=== PATIENT | male | born 1935 | race Caucasian/White ===

== ENCOUNTER 2020-06-09 06:35 | Outpatient (REF) | payer MEDICARE, SELFPAY ==
[2020-06-09 06:57] LABS: MANUAL DIFF FLAG SCAN; PLT CLUMP 1; Red Cell Distribution Width 22.1 % (11.0-16.0); SCAN SMEAR FLAG 1
[2020-06-09 06:58] LABS: Basophils Percent Auto 0.3 % (0-2); Eosinophils Absolute Auto 0.3 X10*3/uL (0.0-0.4); Eosinophils Percent Auto 3.4 % (0-4); Hematocrit 27.6 % (42-52); Hemoglobin 9.7 g/dl (14.0-18.0); Imm Gran Abs Auto 0.05 X10*3/uL (0.00-0.03); Imm Gran Pct Auto 0.7 % (0.0-0.4); Lymphocytes Absolute Auto 1.8 X10*3/uL (1.2-4.9); Lymphocytes Percent Auto 24.7 % (20-40); Mean Corpuscular HGB Conc 35.1 g/dl (31.0-36.0); Mean Corpuscular Hemoglobin 35.8 pg (27.0-33.0); Mean Corpuscular Volume 101.8 fL (80-98); Mean Platelet Volume 11.1 fL (9.4-12.4); Monocytes Absolute Auto 0.9 X10*3/uL (0.1-1.2); Monocytes Percent Auto 12.1 % (2-11); Neutrophils Absolute Auto 4.3 X10*3/uL (2.0-8.3); Neutrophils Percent Auto 58.8 % (45-73); Red Blood Count 2.71 X10*6/uL (4.60-5.80); White Blood Count 7.3 X10*3/uL (4.8-10.8)
[2020-06-09 07:20] LABS: Platelet Count 59 X10*3/uL (160-400)
[2020-06-09 07:21] LABS: SLIDE REVIEW VERIFIED
[2020-06-09 07:27] LABS: Alanine Aminotransferase 25 U/L (0-40); Albumin Level 1.7 g/dL (3.5-5.0); Alkaline Phosphatase 237 U/L (39-117); Anion Gap 14 (12-20); Aspartate Amino Transferase 69 U/L (5-37); Bilirubin Total 2.6 mg/dL (0.0-1.0); Blood Urea Nitrogen 39 mg/dL (9-16); Calcium 7.2 mg/dL (8.4-10.2); Carbon Dioxide 21 mmol/L (22-29); Chloride 104 mmol/L (96-108); Estimated Glomerular Filt Rate > 60; Glucose Random 78 mg/dL (60-115); Potassium 3.9 mmol/L (3.3-5.1); Sodium 135 mmol/L (135-145); Total Protein 5.1 g/dL (6.5-8.0)
== END 2020-06-09 06:36 | disposition home or self-care (01) ==
LOC: HO.MMNH1L 06:35
PROVIDERS: Visit Provider Family Medicine
DX: R53.1 Weakness (principal)
CPT/HCPCS: 36415; 80053; 85025

== ENCOUNTER 2020-06-12 00:10 | Outpatient (REF) | payer MEDICARE, SELFPAY ==
[2020-06-12 07:37] LABS: Hemoglobin 9.8 g/dl (14.0-18.0); PLT CLUMP 1
[2020-06-12 07:39] LABS: Hematocrit 28.8 % (42-52); Mean Corpuscular Hemoglobin 36.6 pg (27.0-33.0); Mean Corpuscular Volume 107.5 fL (80-98); Mean Platelet Volume 12.2 fL (9.4-12.4); Red Blood Count 2.68 X10*6/uL (4.60-5.80); Red Cell Distribution Width 22.6 % (11.0-16.0); White Blood Count 9.1 X10*3/uL (4.8-10.8)
[2020-06-12 07:50] LABS: Platelet Count 67 X10*3/uL (160-400)
[2020-06-12 08:20] LABS: Anion Gap 11 (12-20); Blood Urea Nitrogen 31 mg/dL (9-16); Calcium 7.5 mg/dL (8.4-10.2); Carbon Dioxide 24 mmol/L (22-29); Chloride 104 mmol/L (96-108); Estimated Glomerular Filt Rate > 60; Glucose Random 78 mg/dL (60-115); Potassium 4.7 mmol/L (3.3-5.1); Sodium 134 mmol/L (135-145)
== END 2020-06-12 00:11 | disposition home or self-care (01) ==
LOC: HO.MMNH1L 00:10
PROVIDERS: Visit Provider Family Medicine
DX: R53.1 Weakness (principal)
CPT/HCPCS: 36415; 80048; 85027

== ENCOUNTER 2020-06-15 14:22 | Emergency (ER) | payer MEDICARE, SELFPAY ==
--- NOTE | ~2020-06-15 | CT_ITS ---
EXAMINATION: CT HEAD WITHOUT CONTRAST (STROKE PROTOCOL) CLINICAL INFORMATION: Stroke protocol. Weakness. COMPARISON: None TECHNIQUE: Contiguous axial imaging was performed from the skull base to vertex without intravenous administration of contrast. This CT examination was performed using dose optimization techniques as appropriate, variously including the following: *Automated exposure control *Adjustment of mA and/or kV according to patient size (this includes techniques or standardized protocols for targeted exams where dose is matched to indication/reason for exam; i.e. extremities or head) *Use of iterative reconstruction technique DLP: 1283 mGy-cm FINDINGS: There is no acute intra-axial, extra-axial bleed, masses or midline shift there is dystrophic calcification bibasilar ganglia. 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 There are bilateral ICA aneurysm clips producing beam hardening artifact. There is bilateral temporal lobe craniotomies for aneurysm clipping. Otherwise the calvarium is unremarkable. Both lateral ventricles are enlarged and so are the cortical sulci. The visualized sinuses and middle ears and mastoid air cells show no significant mucosal thickening. There are no air-fluid levels. CT/CT head for stroke IMPRESSION: No acute intracranial process seen. 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 This critical result was discussed with Dr. Julio C Martines at 2:49 hours on 06/15/2020. It was ascertained that the content and urgency of the report was understood at the time of direct communication.
--- NOTE | 2020-06-15 14:28 | ECG_ITS ---
Test Reason : STROKE? Blood Pressure : / mmHG Vent. Rate : 099 BPM Atrial Rate : 220 BPM P-R Int : 000 ms QRS Dur : 080 ms QT Int : 344 ms P-R-T Axes : 000 -37 092 degrees QTc Int : 441 ms Atrial fibrillation with Premature ventricular complexes Left axis deviation Low voltage QRS Nonspecific T wave abnormality Abnormal ECG No previous ECGs available Referred By: Vladimir Martines Electronically Signed By:REAL JACKSON MD
[2020-06-15 14:45] LABS: Prothrombin Time Whole Bld POC 24.4 sec (11.1-13.5)
[2020-06-15 14:47] LABS: Glucose, Whole Blood 117 mg/dL (60-115)
--- NOTE | 2020-06-15 15:01 | MHC.STROKE ---
1418 EMS PRE-NOTIFICATION FROM [facility] STROKE ALERT DECREASED VISION ONSET 1330.ARRIVED 1422 EXAMINED BY MD, STROKE PROTOCOL ACTIVATED. 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 SEE RADIOLOGY READING. POC INR 2.0. RECENT RIGHT HIP SURGERY AT [facility] S/[facility]. WENT TO [facility] ON 06/08/20. I CALLED THE SNF [phone], AND SPOKE WITH THE NURSE, HE WAS NOT ON ANY BLOOD THINNERS OR ANTICOAGULATION. SHE DID NOT HAVE MUCH OF HIS HISTORY. [facility] CALLED FOR RECORDS H&P AND D/C SUMMARY. DISCUSSED CASE WITH DR US AND PATIENT IS EXCLUDED FROM TPA (ALTEPLASE) DUE TO RECENT SURGERY WITHIN 15 DAYS AND ELEVATED INR. WE WILL DO A LAB DRAW TO VERIFY INR. HIS ONLY COMPLAINT IS THAT HE COULDN'T SEE THE NUMBERS ON THE CARDS. AOX3, MAGDALENO, HE DOES HAVE EDEMA TO JELENA ARMS. SEE NURSES NOTES. I WILL FOLLOW NEEDED.
[2020-06-15 15:05] LABS: MANUAL DIFF FLAG NO
[2020-06-15 15:07] LABS: Basophils Percent Auto 0.3 % (0-2); Eosinophils Percent Auto 0.3 % (0-4); Hematocrit 27.9 % (42-52); Hemoglobin 9.5 g/dl (14.0-18.0); Imm Gran Abs Auto 0.08 X10*3/uL (0.00-0.03); Imm Gran Pct Auto 0.5 % (0.0-0.4); Lymphocytes Absolute Auto 1.6 X10*3/uL (1.2-4.9); Mean Corpuscular HGB Conc 34.1 g/dl (31.0-36.0); Mean Corpuscular Hemoglobin 37.4 pg (27.0-33.0); Mean Corpuscular Volume 109.8 fL (80-98); Mean Platelet Volume 11.1 fL (9.4-12.4); Monocytes Absolute Auto 1.2 X10*3/uL (0.1-1.2); Monocytes Percent Auto 7.6 % (2-11); Neutrophils Absolute Auto 12.9 X10*3/uL (2.0-8.3); Neutrophils Percent Auto 81.3 % (45-73); Red Blood Count 2.54 X10*6/uL (4.60-5.80); Red Cell Distribution Width 21.9 % (11.0-16.0); White Blood Count 15.9 X10*3/uL (4.8-10.8)
[2020-06-15 15:08] LABS: Platelet Count 77 X10*3/uL (160-400)
[2020-06-15 15:13] LABS: INTERNATIONAL NORM RATIO 1.7 (0.9-1.1); Prothrombin Time 20.4 SEC (10.8-13.0)
[2020-06-15 15:16] LABS: Partial Thromboplastin Time 37.5 SEC (24.1-38.0)
[2020-06-15 15:18] VITALS: BP 134/73; PULSE 82; RESP 22; TEMP 37.6; O2SAT 99; BMI 26.6
[2020-06-15 15:29] LABS: Stroke Lab Use COMPLETE
[2020-06-15 15:36] LABS: Anion Gap 13 (12-20); Blood Urea Nitrogen 24 mg/dL (9-16); Calcium 7.2 mg/dL (8.4-10.2); Carbon Dioxide 21 mmol/L (22-29); Chloride 105 mmol/L (96-108); Creatinine Clr Calc Pharmacy 58.7; Estimated Glomerular Filt Rate > 60; Glucose Random 114 mg/dL (60-115); Potassium 4.6 mmol/L (3.3-5.1); Sodium 134 mmol/L (135-145); Troponin-I High Sensitivity 21.4 ng/L (<3.5-35.0)
--- NOTE | 2020-06-15 16:48 | ED.GENADULT ---
HPI - General Adult General Chief complaint: Altered Mental Status Stated complaint: STROKE ALERT ,DECREASED VISION,LKWT @ 1:30PM Time Seen by Provider: 06/15/20 14:28 Source: patient and EMS Mode of arrival: EMS Limitations: no limitations History of Present Illness HPI narrative: 85-year-old male brought to the emergency department by ambulance for evaluation of vision change. The information came from EMS and from the patient. Patient states that he has noticed blurred vision which has been intermittent, it is unclear when the symptoms started with a may have started 1-2 hours prior to being transported to the emergency department. According to the paramedics, the patient had similar vision changes in the past when he had aneurysms. The patient was brought to the emergency department as a stroke alert. The patient currently states that his vision is blurred in both eyes but is able to see through the blurriness. He denied headache, nausea or vomiting. He denied weakness or numbness. He denied chest pain, shortness of breath, abdominal pain, changes vomited changes urine. Related Data Allergies Allergy/AdvReac Type Severity Reaction Status Date / Time No Known Allergies Allergy Verified 06/15/20 14:28 Review of Systems Review of Systems: Yes all other systems are reviewed and are negative PMFSH Past Medical History Medical History (Updated 06/15/20 @ 17:41 by Vladimir Martines MD) Acute kidney failure Fracture Hypokalemia Hypokalemia Social History Social History Advance Directives: No Advance Directives Information Provided: No Physical Exam Vital Signs: Vital Signs: Last Vital Signs Temp 99.1 F 06/15/20 17:11 Pulse 92 06/15/20 17:11 Resp 16 06/15/20 17:11 BP 124/77 06/15/20 17:11 Pulse Ox 97 06/15/20 17:11 Body Mass Index 26.6 Const: General: cooperative Orientation/consciousness: oriented to person and oriented to place Limitations: no limitations HENMT: Head: Yes normal to inspection, Yes normocephalic and Yes atraumatic Ears: external ears normal General nose exam: Normal external nose present Face and sinus: Yes normal facial exam Mouth: Normal oral and palatal mucosa present Throat: Yes posterior oropharynx normal Eyes: Other: The patient is able to see fingers that are put up in front of him, I can identify objects, he does not appear to have any peripheral deficits on my examination. Periorbital: periorbital findings normal Eyelids: Yes eyelids normal Conjunctivae: conjunctivae normal Sclerae: sclerae normal Corneas: corneas normal Pupils: Equal, round and reactive pupils present Direct Ophthalmoscopy: normal light reflex Neck: Neck: Yes full ROM, Yes no lymphadenopathy, Yes no meningeal signs, Yes trachea midline and Yes supple Chest: Chest palpation & inspection: normal inspection of the chest and normal palpation of entire chest wall Resp: Effort & Inspection: normal respiratory effort and able to speak in complete sentences Auscultation: clear to auscultation bilaterally Cardio: Rate: regular rate Rhythm: regular rhythm Heart sounds: S1 normal heart sound present, S2 normal heart sound present and no murmurs GI: Inspection: Yes normal to inspection Palpation (GI): Soft to palpation, nontender, no guarding, not rigid and No hepatosplenomegaly present : General: Yes no CVA tenderness Back/Spine/Pelvis: Back: no CVA tenderness Cervical Spine: normal cervical lordosis Thoracic/Lumbar Spine: thoracic and lumbar spine normal to inspection Skin: Lesions: no lesions Rashes: no rashes Wounds: no wounds Neuro: General: oriented to person, oriented to place and no meningeal signs Cranial nerves: Yes CN's II-XII intact bilaterally and Yes Equal, round and reactive pupils present Cognition (Neuro): normal cognition Motor exam (neuro): 5/5 motor strength present throughout Extrem: General: Yes normal to inspection and Yes full ROM Psych: Mental Status: mental status grossly normal Speech and movement: Normal speech and movement present Affect: normal affect Attitude: cooperative NIH Stroke Scale Internal: Initial- Upon Arrival Level of Consciousness: Alert Level of Consciousness Questions: Answers both questions correctly Level of Consciousness Commands: Performs both tasks correctly Best Gaze: Normal Visual: No visual loss Facial Palsy: Normal Motor Arm (Right): No drift Motor Arm (Left): No drift Motor Leg (Right): No drift Motor Leg (Left): No drift Limb Ataxia: Absent Sensory: Normal Best Language: No aphasia Dysarthia: Normal Extinction and Inattention: No abnormality Score: 0 Course Course Course Narrative: 85-year-old male sent to emergency department from his care facility for evaluation of change in vision. 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 The patient's physical examination revealed a nonfocal neurologic exam. NIH stroke scale was 0. The patient was able to identify objects without any difficulty. I did order a stroke workup on the patient. CT scan of the brain revealed no acute bleed or acute stroke but the patient does have significant abnormalities consistent with his previous surgery for subarachnoid hemorrhage and aneurysm repairs. [place] [address], of 9.5 and 27.9 which appears to be chronic. His BUN is elevated at 24 but this appears to be chronic. Patient's troponin was detectable but not elevated at 21.4. His urinalysis was negative. The patient's INR was elevated at 2.0 and his PTT was normal. The patient is not a tPA candidate based on the fact that he has an elevated INR and had a recent hip surgery. Also, at this time I do not believe the patient has had a stroke as the cause of his change in vision. On re-evaluation, the patient states his vision is normal. The patient's does have an elevated white blood cell count but I do not have any evidence for an infectious process at this time therefore he will be discharged back to his care facility for further management treatment. Medical Decision Making Lab Data Result diagrams: 06/15/20 15:01 06/15/20 15:01 Labs: Lab Results 06/15/20 06/15/20 06/15/20 Range/Units 14:33 14:42 15:01 WBC 15.9 H (4.8-10.8) X10*3/uL RBC 2.54 L (4.60-5.80) X10*6/uL Hgb 9.5 L (14.0-18.0) g/dl Hct 27.9 L (42-52) % MCV 109.8 H (80-98) fL MCH 37.4 H (27.0-33.0) pg MCHC 34.1 (31.0-36.0) g/dl RDW 21.9 H (11.0-16.0) % Plt Count 77 L (160-400) X10*3/uL MPV 11.1 (9.4-12.4) fL Immature Gran % (Auto) 0.5 H (0.0-0.4) % Neut % (Auto) 81.3 H (45-73) % Lymph % (Auto) 10.0 L (20-40) % [place] % (Auto) 7.6 (2-11) % Eos % (Auto) 0.3 (0-4) % Baso % (Auto) 0.3 (0-2) % Lymph # (Auto) 1.6 (1.2-4.9) X10*3/uL [place] # (Auto) 1.2 (0.1-1.2) X10*3/uL Eos # (Auto) 0.0 (0.0-0.4) X10*3/uL Baso # (Auto) 0.0 (0.0-0.2) X10*3/uL Abs Immat Gran (auto) 0.08 H (0.00-0.03) X10*3/uL Absolute Neuts (auto) 12.9 H (2.0-8.3) X10*3/uL Absolute Nucleated RBC 0.000 (0.0-0.012) X10*3/uL Nucleated RBC % (auto) 0.0 (0.0-0.2) /100WBC PT (10.8-13.0) SEC Whole Blood PT 24.4 H (11.1-13.5) sec INR (0.9-1.1) Whole Blood INR 2.0 H (0.9-1.1) APTT (24.1-38.0) SEC Sodium (135-145) mmol/L Potassium (3.3-5.1) mmol/L Chloride (96-108) mmol/L Carbon Dioxide (22-29) mmol/L Anion Gap (12-20) BUN (9-16) mg/dL Creatinine (0.5-1.4) mg/dL Estim Creat Clear Calc Estimated GFR POC Glucose 117 H (60-115) mg/dL Random Glucose (60-115) mg/dL Calcium (8.4-10.2) mg/dL Total Creatine Kinase (38-174) U/L Troponin I High Sens (<3.5-35.0) ng/L Urine Color Urine Appearance Urine pH (5.0-8.0) Ur Specific [place] (1.005-1.025) Urine Protein (NEG-TRACE) MG/DL Urine Glucose (UA) (NEG) MG/DL Urine Ketones (NEG) MG/DL Urine Blood (NEG) Urine Nitrite (NEG) Ur Leukocyte Esterase (NEG) 06/15/20 06/15/20 06/15/20 Range/Units 15:01 15:01 15:01 WBC (4.8-10.8) X10*3/uL RBC (4.60-5.80) X10*6/uL Hgb (14.0-18.0) g/dl Hct (42-52) % MCV (80-98) fL MCH (27.0-33.0) pg MCHC (31.0-36.0) g/dl RDW (11.0-16.0) % Plt Count (160-400) X10*3/uL MPV (9.4-12.4) fL Immature Gran % (Auto) (0.0-0.4) % Neut % (Auto) (45-73) % Lymph % (Auto) (20-40) % [place] % (Auto) (2-11) % Eos % (Auto) (0-4) % Baso % (Auto) (0-2) % Lymph # (Auto) (1.2-4.9) X10*3/uL [place] # (Auto) (0.1-1.2) X10*3/uL Eos # (Auto) (0.0-0.4) X10*3/uL Baso # (Auto) (0.0-0.2) X10*3/uL Abs Immat Gran (auto) (0.00-0.03) X10*3/uL Absolute Neuts (auto) (2.0-8.3) X10*3/uL Absolute Nucleated RBC (0.0-0.012) X10*3/uL Nucleated RBC % (auto) (0.0-0.2) /100WBC PT 20.4 H (10.8-13.0) SEC Whole Blood PT (11.1-13.5) sec INR 1.7 H (0.9-1.1) Whole Blood INR (0.9-1.1) APTT 37.5 (24.1-38.0) SEC Sodium 134 L (135-145) mmol/L Potassium 4.6 (3.3-5.1) mmol/L Chloride 105 (96-108) mmol/L Carbon Dioxide 21 L (22-29) mmol/L Anion Gap 13 (12-20) BUN 24 H (9-16) mg/dL Creatinine 0.86 (0.5-1.4) mg/dL Estim Creat Clear Calc 58.7 Estimated GFR > 60 POC Glucose (60-115) mg/dL Random Glucose 114 D (60-115) mg/dL Calcium 7.2 L (8.4-10.2) mg/dL Total Creatine Kinase 46 (38-174) U/L Troponin I High Sens 21.4 (<3.5-35.0) ng/L Urine Color Urine Appearance Urine pH (5.0-8.0) Ur Specific [place] (1.005-1.025) Urine Protein (NEG-TRACE) MG/DL Urine Glucose (UA) (NEG) MG/DL Urine Ketones (NEG) MG/DL Urine Blood (NEG) Urine Nitrite (NEG) Ur Leukocyte Esterase (NEG) 06/15/20 Range/Units 17:13 WBC (4.8-10.8) X10*3/uL RBC (4.60-5.80) X10*6/uL Hgb (14.0-18.0) g/dl Hct (42-52) % MCV (80-98) fL MCH (27.0-33.0) pg MCHC (31.0-36.0) g/dl RDW (11.0-16.0) % Plt Count (160-400) X10*3/uL MPV (9.4-12.4) fL Immature Gran % (Auto) (0.0-0.4) % Neut % (Auto) (45-73) % Lymph % (Auto) (20-40) % [place] % (Auto) (2-11) % Eos % (Auto) (0-4) % Baso % (Auto) (0-2) % Lymph # (Auto) (1.2-4.9) X10*3/uL [place] # (Auto) (0.1-1.2) X10*3/uL Eos # (Auto) (0.0-0.4) X10*3/uL Baso # (Auto) (0.0-0.2) X10*3/uL Abs Immat Gran (auto) (0.00-0.03) X10*3/uL Absolute Neuts (auto) (2.0-8.3) X10*3/uL Absolute Nucleated RBC (0.0-0.012) X10*3/uL Nucleated RBC % (auto) (0.0-0.2) /100WBC PT (10.8-13.0) SEC Whole Blood PT (11.1-13.5) sec INR (0.9-1.1) Whole Blood INR (0.9-1.1) APTT (24.1-38.0) SEC Sodium (135-145) mmol/L Potassium (3.3-5.1) mmol/L Chloride (96-108) mmol/L Carbon Dioxide (22-29) mmol/L Anion Gap (12-20) BUN (9-16) mg/dL Creatinine (0.5-1.4) mg/dL Estim Creat Clear Calc Estimated GFR POC Glucose (60-115) mg/dL Random Glucose (60-115) mg/dL Calcium (8.4-10.2) mg/dL Total Creatine Kinase (38-174) U/L Troponin I High Sens (<3.5-35.0) ng/L Urine Color [place] Urine Appearance CLEAR Urine pH 5.0 (5.0-8.0) Ur Specific [place] 1.025 (1.005-1.025) Urine Protein NEG (NEG-TRACE) MG/DL Urine Glucose (UA) NEG (NEG) MG/DL Urine Ketones NEG (NEG) MG/DL Urine Blood NEG (NEG) Urine Nitrite NEG (NEG) Ur Leukocyte Esterase NEG (NEG) ECG Data Attestation: I personally reviewed and interpreted this ECG as follows: Interpretation: 1510: Normal sinus rhythm with a rate of 99, normal intervals, occasional PVC, Q-wave in lead 3 and AVF, no ST segment elevation or depression, diffuse T-wave flattening, no old EKG for comparison. Discharge Plan Discharge Clinical Impression: Alteration in vision Leukocytosis Qualifiers: Leukocytosis type: unspecified Qualified Code(s): D72.829 - Elevated white blood cell count, unspecified Patient Disposition: Home, Self-Care Additional Instructions: Your workup included a CT scan of the brain which did not reveal any acute findings to explain your change in vision. Your blood work did reveal an elevated white blood cell count but there is no evidence for infection at this time. You are anemic but this appears to be chronic. Your urinalysis was normal with no evidence for urinary tract infection. At this time, I do not have a clear cause for change in vision but I think it is okay to send you back to your care facility. Follow-up with your doctor in 2 days. Please return to the emergency department if your symptoms get worse or if you develop any symptoms that are concerning to you.
[2020-06-15 17:11] VITALS: BP 124/77; PULSE 92; RESP 16; TEMP 37.3; O2SAT 97
[2020-06-15 17:24] LABS: Glucose Urine UA NEG (NEG); Leukocyte Esterase Urine NEG (NEG); Nitrite Urine NEG (NEG); Specific Gravity - Urine 1.025 (1.005-1.025); Urine Blood NEG (NEG); Urine Ketones NEG (NEG); Urine Protein NEG (NEG-TRACE)
[2020-06-15 17:31] LABS: Appearance Urine CLEAR; Color Urine AMBER
[2020-06-15 18:09] VITALS: BP 118/73; PULSE 96; RESP 22; TEMP 36.6; O2SAT 97
--- NOTE | 2020-06-15 19:54 | PC.NURSE ---
Pt being transferred to facility by ems
== END 2020-06-15 19:55 | disposition home or self-care (01) ==
PROVIDERS: Emergency Provider Emergency Medicine Emergency Medical Services; PCP Internal Medicine
DX: D72.829 Elevated white blood cell count, unspecified (principal); H53.8 Other visual disturbances; Z79.899 Other long term (current) drug therapy
CPT/HCPCS: 36415; 70450; 80048; 81003; 82550; 82947; 84484; 85025; 85610; 85730; 93005; 99284

== ENCOUNTER 2020-06-18 11:45 | Inpatient (IN) | payer MEDICARE, SELFPAY ==
[2020-06-18] VITALS (10 sets, daily range): BP systolic 79–147; BP diastolic 47–84; PULSE 70–100; RESP 16–20; TEMP 35.7–38.3; O2SAT 94–98; BMI 25.8; BMI 25.2
--- NOTE | ~2020-06-18 | XR_ITS ---
EXAMINATION: XR CHEST CLINICAL INFORMATION: Central line. COMPARISON: Prior radiograph at 6:37 PM. TECHNIQUE: 2 different frontal views of the chest were obtained. One was performed at 7:23 PM and another at 7:31 PM. FINDINGS: Again seen is cardiomegaly. A right chest wall pacemaker with a single lead in the right ventricle. There is an abandoned lead extending through the left subclavian vein with its tip in the right ventricle as well. The left jugular catheter has its tip which extends downward and slightly leftward at the level of the 3rd left rib. I suspect that this is most likely in the internal mammary vein and not the subclavian vein. Given the fact that there is an abandoned left subclavian pacer lead, I suspect that the left subclavian is possibly occluded/scarred accounting for the abnormal course. Marked degenerative changes present in both shoulders. There is mild cardiac enlargement. The lungs are hypoinflated. Bilateral airspace disease is again seen. No pneumothorax. XR/XR chest 1V IMPRESSION: The left IJ catheter probably extends into the internal mammary. This critical result was discussed with Dr. Kennedy at 8:20 PM on the evening of the exam and it was ascertained that the content and urgency of the report was understood at the time of direct communication.
--- NOTE | ~2020-06-18 | XR_ITS ---
EXAMINATION: XR CHEST CLINICAL INFORMATION: Low O2. COMPARISON: None TECHNIQUE: Frontal view of the chest was obtained. FINDINGS: The lungs are hypoexpanded with patchy opacities seen in the right midlung and left midlung suspicious for infiltrate. There are left hemidiaphragm likely from underlying atelectasis. The heart size and pulmonary vascularity is normal. There is pacer electrode in the right ventricle. A second left pacer electrode without hardware is noted. There are surgical duane in left axilla from previous intervention. XR/XR chest 1V IMPRESSION: Hypoexpanded lungs with patchy opacities in bilateral mid lung region suspicious for developing infiltrates aerated
--- NOTE | ~2020-06-18 | CT_ITS ---
EXAMINATION: CT CHEST, ABDOMEN AND PELVIS WITHOUT CONTRAST CLINICAL INFORMATION: Pleural effusion, pneumonia. Sacral decubitus ulcers. COMPARISON: None. TECHNIQUE: Contiguous axial thin section helical images of the chest, abdomen and pelvis were performed without contrast. The data set was reformatted in the coronal and sagittal planes and reviewed on an independent workstation. This CT examination was performed using dose optimization techniques as appropriate, variously including the following: *Automated exposure control *Adjustment of mA and/or kV according to patient size (this includes techniques or standardized protocols for targeted exams where dose is matched to indication/reason for exam; i.e. extremities or head) *Use of iterative reconstruction technique Dose Length Product: 1599 mGycm. FINDINGS: LUNGS: Bibasilar atelectasis and patchy consolidation, also involving the right upper lobe posteriorly, and right middle lobe at the confluence of the fissures. There is peripheral reticulation in the subpleural left upper lobe and lingula which may represent areas of fibrosis. MEDIASTINUM: No pericardial effusion. No adenopathy. The aortic root is mildly aneurysmal measuring 4.8 cm. The left IJ catheter courses along the lateral aspect of the aortic arch, presumably within the left superior intercostal vein. PLEURA: Moderate left and small right pleural effusions. Associated left basilar atelectasis. AXILLA: Edema and postsurgical changes in the left axilla with multiple surgical clips. LIVER, GALLBLADDER, BILIARY TREE: The liver appears shrunken with a nodular contour compatible with cirrhosis. No obvious liver lesion. The gallbladder appears to be distended with sludge. PANCREAS: The pancreas is partially fatty atrophied. SPLEEN: The spleen is not enlarged. ADRENAL GLANDS, KIDNEYS, URETERS, AND BLADDER: No hydronephrosis. Nephrograms are symmetric. No suspicious lesions. The urinary bladder is drained by Schrader catheter. BOWEL LOOPS: No focal inflammatory process or obstruction. LYMPH NODES/RETROPERITONEUM: Moderate ascites. Diffuse anasarca. OSSEOUS STRUCTURES: Postsurgical changes related to a recent right hip arthroplasty with lateral skin duane and fluid deep to the iliotibial band. Skin thickening and subcutaneous edema superficial to the sacrum without evidence of underlying osteomyelitis. ADDITIONAL FINDINGS: Moderate to severe multilevel degenerative disc disease. There is destruction of the endplates at T11-T12, with loss of 50% vertebral body height of the T12 vertebral body. The appearance suggests chronic discitis/osteomyelitis. CT/CT abdomen pelvis wo con IMPRESSION: Cirrhosis and ascites. Anasarca. Moderate left and small right pleural effusions. Bibasilar atelectasis and areas of mild consolidation and groundglass attenuation. Cannot exclude multifocal pneumonia. The left IJ catheter courses into the left superior intercostal vein and should be repositioned. Destruction of the T11-T12 endplates with vertebral body height loss and irregularity suggests discitis/osteomyelitis. Although this appears chronic, cannot exclude active infection. No priors for comparison. Correlate clinically. Possible cellulitis superficial to the sacrum without evidence of underlying osteomyelitis. Postsurgical changes of the right hip with fluid collection deep to the iliotibial band. 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 .
--- NOTE | ~2020-06-18 | XR_ITS ---
EXAMINATION: XR CHEST CLINICAL INFORMATION: Central line COMPARISON: Chest radiograph 06/18/2020 TECHNIQUE: Frontal view of the chest was obtained. FINDINGS: Right-sided pacemaker device with lead projecting over the right ventricle. Abandoned left-sided lead is again demonstrated. Interval placement of left internal jugular line with catheter tip coiled at the junction between the internal jugular vein and left subclavian vein. Stable cardiomediastinal silhouette. Increased hazy opacity at the left lung base. Small left pleural effusion. The right lung is clear. No acute osseous abnormality. Surgical clips in the left axilla. XR/XR chest 1V IMPRESSION: Left internal jugular central venous line tip at the junction between internal jugular vein and left subclavian vein, with tip coiled laterally. Increased hazy opacity at the left lung base, that may represent atelectasis or infiltrate. Small left pleural effusion. Findings were discussed with Dr. Kennedy at 7:06 PM on 06/18/2020.
--- NOTE | 2020-06-18 12:15 | PC.NURSE ---
PT HAS A LARGE OPEN ULCER ON HIS COCXY AREA, NO VISIBLE TUNLING AT THIS TIME. PT ALSO HAS LARGE PATCHES OF BRUISING NOTICED HIS BACK/FLANK AREA.
--- NOTE | 2020-06-18 12:35 | ECG_ITS ---
Test Reason : WEAKNESS Blood Pressure : / mmHG Vent. Rate : 106 BPM Atrial Rate : 107 BPM P-R Int : 000 ms QRS Dur : 084 ms QT Int : 292 ms P-R-T Axes : 000 -38 109 degrees QTc Int : 387 ms Atrial fibrillation with rapid ventricular response with premature ventricular or aberrantly conducted complexes Left axis deviation Low voltage QRS Abnormal QRS-T angle, consider primary T wave abnormality Abnormal ECG When compared with ECG of 15-JUN-2020 15:10, Premature ventricular complexes are no longer Present Nonspecific T wave abnormality, improved in Lateral leads QT has shortened Referred By: Mildred Pak Electronically Signed By:REAL JACKSON MD
--- NOTE | 2020-06-18 12:39 | ED_ITS ---
HPI - General Adult General Chief complaint: Dyspnea Stated complaint: SOB W LOW O2SAT IN 70'S Time Seen by Provider: 06/18/20 12:13 Source: patient Mode of arrival: ambulatory Limitations: no limitations History of Present Illness HPI narrative: Patient comes emergency room via EMS. Staff at [facility] called EMS because the patient's oxygen saturation was at 70% on room air. According to EMS, the patient was in no respiratory distress, patient's hands were very cold and they were unable to get any oxygen saturation. Patient did not look cyanotic, patient denies shortness of breath or chest pain. Patient's only complaint was pain in the sacrum. Related Data Home Medications Medication Instructions Recorded Confirmed albuterol sulfate 2 puff INHALATION TID PRN 06/18/20 06/18/20 coenzyme Q10 [Co Q-10] 300 mg PO BEDTIME 06/18/20 06/18/20 metoprolol succinate 12.5 mg PO DAILY 06/18/20 06/18/20 Allergies Allergy/AdvReac Type Severity Reaction Status Date / Time No Known Allergies Allergy Verified 06/15/20 14:28 Review of Systems Review of Systems: Constitutional : No Weight loss, No Fever, No Chills, No Night Sweats, No Fatigue, No Malaise ENT/Mouth : No Hearing loss, No Ear Pain, No Nasal Congestion, No Sinus Pain, No Hoarseness, No sore throat, No Rhinorrhea, No Swallowing Difficulty Eyes: No Eye Pain, No Swelling, No Redness, No Foreign Body, No Discharge, No Vision Changes Cardiovascular : No Chest Pain, No SOB, No Dyspnea on Exertion, No Orthopnea, No Edema, No Palpitations Respiratory : No Cough, No Sputum, No Wheezing, No Smoke Exposure, No Dyspnea Gastrointestinal : No Nausea, No Vomiting, No Diarrhea, No Constipation, No abdominal Pain, No Hematochezia, No Melena Genitourinary : no irregular bleeding, No Dysuria, No Urinary Frequency, No Hematuria, No Urinary Incontinence, No Urgency, No Flank Pain, No Urinary Flow Changes, No Hesitancy Musculoskeletal : No joint pain, No Myalgias, No Joint Swelling Skin : Complaining of pain in the sacrum from a pressure ulcer Neuro : No Weakness, No Numbness, No Paresthesias, No Loss of Consciousness, No Dizziness, No Headache Psych : No Anxiety/Panic, No Depression, No SI/HI/AH/VH, No Social Issues, Heme/Lymph: No Bruising, No Bleeding,No Lymphadenopathy Endocrine : No Polyuria, No Polydipsia, No Temperature Intolerance [facility] Past Medical History Medical History Acute kidney failure Fracture HTN (hypertension) Hypokalemia Hypokalemia Social History Social History Smoking Status: Former smoker Use of substances other than those prescribed or required for medical reasons: No Advance Directives: No Advance Directives Information Provided: No Physical Exam Vital Signs: Vital Signs: Last Vital Signs Temp 101.0 F H 06/18/20 12:12 Pulse 98 06/18/20 16:43 Resp 18 06/18/20 16:43 BP 98/53 L 06/18/20 16:43 Pulse Ox 96 06/18/20 16:43 Body Mass Index 25.2 Appearance: Alert. Oriented X3. No acute distress. Eyes: Pupils equal, round and reactive to light. ENT: Pharynx normal. Neck: Normal inspection. Neck supple. No lymph nodes noted. No crepitus CVS: Normal heart rate and rhythm. Pulses normal. Normal S1 and S2 Respiratory: No respiratory distress. On nasal cannula Abdomen: Soft and nontender. No rigidity. Skin: Skin warm and dry. Patient has a healing surgical site on the hip on the right side, patient has stage III pressure ulcer in the sacrum Extremities: +1 bilaterall extremity edema Neuro: Cranial nerves 2-12 grossly intact Course Course Course Narrative: at this time, 14:30 labs are still pending, patient is a difficult stick. The nurses tried multiple times to start an IV, patient is a difficult stick, even with ultrasound. I was asked per the nurse to start an IV, patient has now a right IJ. 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 Patient states that he is tired of coming to hospitals, being poked, and all the discomfort that comes with a hospital visit. Patient asked to talk to me, Patient states that he does not want any further treatment, patient states that he will like to only be made comfortable. Patient asked me if I could call a multimedia services manager so that he could sign papers and he wants to request physician assisted suicide. I discussed with the patient that this is not an option. Later, patient's came in the room patient is insistent that he does no want any further treatment. At this time, patient is full code. After a prolonged discussion, we agreed that patient can change his code status to DNR DNI 1st, and then the patient and his can consider a ONLINE MERCHANDISING SPECIALIST option. Patient and agree with this plan. It was explained to the patient that DNR DNI does not mean do not treat, we will still go ahead and give him fluids, antibiotics, pain medication as needed. At this time 15:45 patient agrees with plan and agrees to continue with the treatment treated. I discussed with the patient that there is a possibility that he may have sepsis, likely secondary to pneumonia, patient agreed to allow us to start treatment 14:37 I had another long discussion with the patient's , she does not know if she wants to consent for a central line. I discussed with the patient and his , that he needs a central line and pressors since his blood pressure is dropping. The patient states that he will do whatever his says. The was thoroughly educated, and at this time, she has split feelings between allowing us to do a central line, giving him pressors versus making him ONLINE MERCHANDISING SPECIALIST. Patient and his will have a conversation at this time, and the side shortly. 17:14: At this time, patient's blood pressure improving with fluids. The patient and his decided that since the blood pressure is improving, they will hold off on the central line, but if the blood pressure drops again, they will accept the central line. Patient is now DNR DNI, MOLST form has been signed by the patient's who is the patient's healthcare proxy. Given that the patient is DNR DNI, patient has acute CHF exacerbation, we will be very cautious with fluids, he may not get the full 30 mL/kilogram Patient discussed with Dr. Bowles, patient being admitted. Sign-out given to Dr. Kennedy as well, as patient may need a central line if the blood pressure drops while boarding in the ED Medical Decision Making Lab Data Result diagrams: 06/18/20 14:37 06/18/20 14:38 Labs: Lab Results 06/18/20 06/18/20 06/18/20 Range/Units 14:13 14:37 14:38 WBC 15.9 H (4.8-10.8) X10*3/uL RBC 2.57 L (4.60-5.80) X10*6/uL Hgb 9.5 L (14.0-18.0) g/dl Hct 28.8 L (42-52) % MCV 112.1 H (80-98) fL MCH 37.0 H (27.0-33.0) pg MCHC 33.0 (31.0-36.0) g/dl RDW 21.0 H (11.0-16.0) % Plt Count 87 L (160-400) X10*3/uL MPV 11.0 (9.4-12.4) fL Immature Gran % (Auto) 0.9 H (0.0-0.4) % Neut % (Auto) 84.5 H (45-73) % Lymph % (Auto) 5.8 L (20-40) % [place] % (Auto) 8.4 (2-11) % Eos % (Auto) 0.0 (0-4) % Baso % (Auto) 0.4 (0-2) % Lymph # (Auto) 0.9 L (1.2-4.9) X10*3/uL [place] # (Auto) 1.3 H (0.1-1.2) X10*3/uL Eos # (Auto) 0.0 (0.0-0.4) X10*3/uL Baso # (Auto) 0.1 (0.0-0.2) X10*3/uL Abs Immat Gran (auto) 0.15 H (0.00-0.03) X10*3/uL Absolute Neuts (auto) 13.4 H (2.0-8.3) X10*3/uL Absolute Nucleated RBC 0.000 (0.0-0.012) X10*3/uL Nucleated RBC % (auto) 0.0 (0.0-0.2) /100WBC ESR (0-15) MM/HR PT 23.6 H (10.8-13.0) SEC INR 2.0 H (0.9-1.1) Sodium 132 L (135-145) mmol/L Potassium 4.6 (3.3-5.1) mmol/L Chloride 102 (96-108) mmol/L Carbon Dioxide 19 L (22-29) mmol/L Anion Gap 16 (12-20) BUN 25 H (9-16) mg/dL Creatinine 1.03 (0.5-1.4) mg/dL Estim Creat Clear Calc 49.0 Estimated GFR > 60 Random Glucose 85 (60-115) mg/dL Lactic Acid (0.5-2.0) mmol/L Calcium 7.1 L (8.4-10.2) mg/dL Total Bilirubin 4.3 H (0.0-1.0) mg/dL Direct Bilirubin 2.3 H (0.0-0.5) mg/dL AST 47 H (5-37) U/L ALT 22 (0-40) U/L Alkaline Phosphatase 195 H (39-117) U/L C-Reactive Protein 8.51 H (< or = 0.50) mg/dL B-Natriuretic Peptide (<100) pg/mL Total Protein 5.8 L (6.5-8.0) g/dL Albumin 1.9 L (3.5-5.0) g/dL Urine Color Urine Appearance Urine pH (5.0-8.0) Ur Specific [place] (1.005-1.025) Urine Protein (NEG-TRACE) MG/DL Urine Glucose (UA) (NEG) MG/DL Urine Ketones (NEG) MG/DL Urine Blood (NEG) Urine Nitrite (NEG) Ur Leukocyte Esterase (NEG) Urine Opiates Screen (Not Detect) Ur Barbiturates Screen (Not Detect) Ur Phencyclidine Scrn (Not Detect) Ur Amphetamines Screen (Not Detect) U Benzodiazepines Scrn (Not Detect) Urine Cocaine Screen (Not Detect) U Marijuana (THC) Screen (Not Detect) Coronavirus (PCR) (Negative) Influenza Type A (PCR) (Negative) Influenza Type B (PCR) (Negative) RSV RNA Qual (PCR) (Negative) 06/18/20 06/18/20 06/18/20 Range/Units 15:00 15:01 15:01 WBC (4.8-10.8) X10*3/uL RBC (4.60-5.80) X10*6/uL Hgb (14.0-18.0) g/dl Hct (42-52) % MCV (80-98) fL MCH (27.0-33.0) pg MCHC (31.0-36.0) g/dl RDW (11.0-16.0) % Plt Count (160-400) X10*3/uL MPV (9.4-12.4) fL Immature Gran % (Auto) (0.0-0.4) % Neut % (Auto) (45-73) % Lymph % (Auto) (20-40) % [place] % (Auto) (2-11) % Eos % (Auto) (0-4) % Baso % (Auto) (0-2) % Lymph # (Auto) (1.2-4.9) X10*3/uL [place] # (Auto) (0.1-1.2) X10*3/uL Eos # (Auto) (0.0-0.4) X10*3/uL Baso # (Auto) (0.0-0.2) X10*3/uL Abs Immat Gran (auto) (0.00-0.03) X10*3/uL Absolute Neuts (auto) (2.0-8.3) X10*3/uL Absolute Nucleated RBC (0.0-0.012) X10*3/uL Nucleated RBC % (auto) (0.0-0.2) /100WBC ESR 25 H (0-15) MM/HR PT (10.8-13.0) SEC INR (0.9-1.1) Sodium (135-145) mmol/L Potassium (3.3-5.1) mmol/L Chloride (96-108) mmol/L Carbon Dioxide (22-29) mmol/L Anion Gap (12-20) BUN (9-16) mg/dL Creatinine (0.5-1.4) mg/dL Estim Creat Clear Calc Estimated GFR Random Glucose (60-115) mg/dL Lactic Acid 4.0 H* (0.5-2.0) mmol/L Calcium (8.4-10.2) mg/dL Total Bilirubin (0.0-1.0) mg/dL Direct Bilirubin (0.0-0.5) mg/dL AST (5-37) U/L ALT (0-40) U/L Alkaline Phosphatase (39-117) U/L C-Reactive Protein (< or = 0.50) mg/dL B-Natriuretic Peptide 485 H (<100) pg/mL Total Protein (6.5-8.0) g/dL Albumin (3.5-5.0) g/dL Urine Color Urine Appearance Urine pH (5.0-8.0) Ur Specific [place] (1.005-1.025) Urine Protein (NEG-TRACE) MG/DL Urine Glucose (UA) (NEG) MG/DL Urine Ketones (NEG) MG/DL Urine Blood (NEG) Urine Nitrite (NEG) Ur Leukocyte Esterase (NEG) Urine Opiates Screen (Not Detect) Ur Barbiturates Screen (Not Detect) Ur Phencyclidine Scrn (Not Detect) Ur Amphetamines Screen (Not Detect) U Benzodiazepines Scrn (Not Detect) Urine Cocaine Screen (Not Detect) U Marijuana (THC) Screen (Not Detect) Coronavirus (PCR) (Negative) Influenza Type A (PCR) (Negative) Influenza Type B (PCR) (Negative) RSV RNA Qual (PCR) (Negative) 06/18/20 06/18/20 06/18/20 Range/Units 16:35 16:35 16:35 WBC (4.8-10.8) X10*3/uL RBC (4.60-5.80) X10*6/uL Hgb (14.0-18.0) g/dl Hct (42-52) % MCV (80-98) fL MCH (27.0-33.0) pg MCHC (31.0-36.0) g/dl RDW (11.0-16.0) % Plt Count (160-400) X10*3/uL MPV (9.4-12.4) fL Immature Gran % (Auto) (0.0-0.4) % Neut % (Auto) (45-73) % Lymph % (Auto) (20-40) % [place] % (Auto) (2-11) % Eos % (Auto) (0-4) % Baso % (Auto) (0-2) % Lymph # (Auto) (1.2-4.9) X10*3/uL [place] # (Auto) (0.1-1.2) X10*3/uL Eos # (Auto) (0.0-0.4) X10*3/uL Baso # (Auto) (0.0-0.2) X10*3/uL Abs Immat Gran (auto) (0.00-0.03) X10*3/uL Absolute Neuts (auto) (2.0-8.3) X10*3/uL Absolute Nucleated RBC (0.0-0.012) X10*3/uL Nucleated RBC % (auto) (0.0-0.2) /100WBC ESR (0-15) MM/HR PT (10.8-13.0) SEC INR (0.9-1.1) Sodium (135-145) mmol/L Potassium (3.3-5.1) mmol/L Chloride (96-108) mmol/L Carbon Dioxide (22-29) mmol/L Anion Gap (12-20) BUN (9-16) mg/dL Creatinine (0.5-1.4) mg/dL Estim Creat Clear Calc Estimated GFR Random Glucose (60-115) mg/dL Lactic Acid (0.5-2.0) mmol/L Calcium (8.4-10.2) mg/dL Total Bilirubin (0.0-1.0) mg/dL Direct Bilirubin (0.0-0.5) mg/dL AST (5-37) U/L ALT (0-40) U/L Alkaline Phosphatase (39-117) U/L C-Reactive Protein (< or = 0.50) mg/dL B-Natriuretic Peptide (<100) pg/mL Total Protein (6.5-8.0) g/dL Albumin (3.5-5.0) g/dL Urine Color DARK YELLOW Urine Appearance CLEAR Urine pH 5.5 (5.0-8.0) Ur Specific [place] 1.025 (1.005-1.025) Urine Protein NEG (NEG-TRACE) MG/DL Urine Glucose (UA) NEG (NEG) MG/DL Urine Ketones NEG (NEG) MG/DL Urine Blood NEG (NEG) Urine Nitrite NEG (NEG) Ur Leukocyte Esterase NEG (NEG) Urine Opiates Screen Not Detected (Not Detect) Ur Barbiturates Screen Not Detected (Not Detect) Ur Phencyclidine Scrn Not Detected (Not Detect) Ur Amphetamines Screen Not Detected (Not Detect) U Benzodiazepines Scrn Not Detected (Not Detect) Urine Cocaine Screen Not Detected (Not Detect) U Marijuana (THC) Screen Not Detected (Not Detect) Coronavirus (PCR) NEGATIVE (Negative) Influenza Type A (PCR) NEGATIVE (Negative) Influenza Type B (PCR) NEGATIVE (Negative) RSV RNA Qual (PCR) NEGATIVE (Negative) Imaging Data Chest x-ray: Radiologist's impression: The lungs are hypoexpanded with patchy opacities seen in the right midlung and left midlung suspicious for infiltrate. There are left hemidiaphragm likely from underlying atelectasis. The heart size and pulmonary vascularity is normal. There is pacer electrode in the right ventricle. A second left pacer electrode without hardware is noted. There are surgical duane in left axilla from previous intervention. XR/XR chest 1V IMPRESSION: Hypoexpanded lungs with patchy opacities in bilateral mid lung region suspicious for developing infiltrates aerated ECG Data Attestation: I personally reviewed and interpreted this ECG as follows: (Atrial fibrillation, heart rate 106, QTC 387, no ST segment depression or elevation, nonspecific T-wave abnormality in lead III) Discharge Plan Discharge Clinical Impression: Pneumonia Qualifiers: Pneumonia type: due to unspecified organism Laterality: unspecified laterality Lung location: unspecified part of lung Qualified Code(s): J18.9 - Pneumonia, unspecified organism Patient Disposition: Admitted As Inpatient
--- NOTE | 2020-06-18 14:20 | PC.NURSE ---
assisting dr navarro with and iv access, dr smith was able to get and ej on the right side of the pt's neck, pt tolerated the procedure well.
[2020-06-18 14:29] LABS: Prothrombin Time 23.6 SEC (10.8-13.0)
[2020-06-18] MEDS: Acetaminophen 325 MG TABLET 650 MG PO (14:44)
[2020-06-18 14:46] LABS: MANUAL DIFF FLAG NO
[2020-06-18] MEDS: Lidocaine HCl 2 % MPF 5 ML VIAL INFILTRATI (14:46)
[2020-06-18 14:49] LABS: Basophils Absolute Auto 0.1 X10*3/uL (0.0-0.2); Basophils Percent Auto 0.4 % (0-2); Hematocrit 28.8 % (42-52); Hemoglobin 9.5 g/dl (14.0-18.0); Imm Gran Abs Auto 0.15 X10*3/uL (0.00-0.03); Imm Gran Pct Auto 0.9 % (0.0-0.4); Lymphocytes Absolute Auto 0.9 X10*3/uL (1.2-4.9); Lymphocytes Percent Auto 5.8 % (20-40); Mean Corpuscular Volume 112.1 fL (80-98); Monocytes Absolute Auto 1.3 X10*3/uL (0.1-1.2); Monocytes Percent Auto 8.4 % (2-11); Neutrophils Absolute Auto 13.4 X10*3/uL (2.0-8.3); Neutrophils Percent Auto 84.5 % (45-73); Platelet Count 87 X10*3/uL (160-400); Red Blood Count 2.57 X10*6/uL (4.60-5.80); White Blood Count 15.9 X10*3/uL (4.8-10.8)
[2020-06-18 15:18] LABS: Alanine Aminotransferase 22 U/L (0-40); Albumin Level 1.9 g/dL (3.5-5.0); Alkaline Phosphatase 195 U/L (39-117); Anion Gap 16 (12-20); Aspartate Amino Transferase 47 U/L (5-37); Bilirubin Direct 2.3 mg/dL (0.0-0.5); Bilirubin Total 4.3 mg/dL (0.0-1.0); Blood Urea Nitrogen 25 mg/dL (9-16); C Reactive Protein 8.51 mg/dL (< or = 0.50); Calcium 7.1 mg/dL (8.4-10.2); Carbon Dioxide 19 mmol/L (22-29); Chloride 102 mmol/L (96-108); Estimated Glomerular Filt Rate > 60; Glucose Random 85 mg/dL (60-115); Potassium 4.6 mmol/L (3.3-5.1); Sodium 132 mmol/L (135-145); Total Protein 5.8 g/dL (6.5-8.0)
[2020-06-18 15:53] LABS: B Type Natriuretic Peptide 485 pg/mL (<100)
[2020-06-18 15:55] LABS: Erythrocyte Sedimentation Rate 25 MM/HR (0-15)
[2020-06-18] MEDS: 0.9 % Sodium Chloride 1,000 ML 999 ML IVCONT ×2 (16:23→19:05)
[2020-06-18] MEDS: levoFLOXacin/D5W 500 MG/100 ML PIGGYBACK 100 MG IV (16:36)
--- NOTE | 2020-06-18 16:45 | PC.NURSE ---
dr navarro at bedside talking to pt and his about the next step in pt's care, pt bp is dropping, and he is a very hard stick, discussing the possibility of central line and pressors. DNR signed at this time as well. pt;s arms are very swollen and weeping, skin tear on the left forearm, lower extremities as well very swollen with peding edema
[2020-06-18 17:01] LABS: Glucose Urine UA NEG (NEG); Leukocyte Esterase Urine NEG (NEG); Nitrite Urine NEG (NEG); PH 5.5 (5.0-8.0); Specific Gravity - Urine 1.025 (1.005-1.025); Urine Blood NEG (NEG); Urine Ketones NEG (NEG); Urine Protein NEG (NEG-TRACE)
[2020-06-18 17:02] LABS: Appearance Urine CLEAR; Color Urine DARK YELLOW
[2020-06-18 17:07] LABS: Reflex Lactate? Lactic Acid Added
[2020-06-18 17:20] LABS: Amphetamine Screen Urine Not Detected (Not Detect); Barbiturates, Urine Not Detected (Not Detect); Benzodiazepines Screen Urine Not Detected (Not Detect); Cannabinoid Screen Urine Not Detected (Not Detect); Cocaine Screen Urine Not Detected (Not Detect); Opiate Screen Urine Not Detected (Not Detect); Phencyclidine Screen Urine Not Detected (Not Detect)
[2020-06-18 17:22] LABS: Influenza A PCR NEGATIVE (Negative); Influenza B PCR NEGATIVE (Negative); Resp Syncy Virus RNA Qual PCR NEGATIVE (Negative); SARS COV2 PCR INHOUSE NEGATIVE (Negative)
--- NOTE | 2020-06-18 18:28 | PC.NURSE ---
dr mcgregor at bedside to insert a central line, 16 welsh on the left jugular
--- NOTE | 2020-06-18 18:35 | ED_ITS ---
HPI - SOB/Dyspnea General Chief Complaint: Dyspnea Stated Complaint: SOB W LOW O2SAT IN 70'S Time Seen by Provider: 06/18/20 12:13 Source: patient Mode of arrival: ambulatory Limitations: no limitations Related Data Home Medications Medication Instructions Recorded Confirmed albuterol sulfate 2 puff INHALATION TID PRN 06/18/20 06/18/20 coenzyme Q10 [Co Q-10] 300 mg PO DAILY 06/18/20 06/18/20 metoprolol succinate 0.5 tab PO DAILY 06/18/20 06/18/20 oxycodone 5 mg PO Q4-6H 06/18/20 06/18/20 potassium chloride 1 tab PO DAILY 06/18/20 06/18/20 Allergies Allergy/AdvReac Type Severity Reaction Status Date / Time No Known Allergies Allergy Verified 06/15/20 14:28 [facility] Past Medical History Medical History (Updated 06/18/20 @ 22:22 by Victor Manuel Kennedy MD) Acute kidney failure Acute renal injury due to sepsis Ascending aorta dilatation Atrial fibrillation Carotid artery dissection Carotid artery stenosis Cerebral arterial aneurysm Chronic diastolic heart failure Fracture of right hip Hearing loss Hepatic failure HTN (hypertension) Hyperlipidemia Hypokalemia [place]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 Pacemaker 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) Septic shock Sick sinus syndrome Surgical History (Updated 06/18/20 @ 22:18 by Victor Manuel Kennedy MD) History of surgery for cerebral aneurysm Status post right shoulder hemiarthroplasty Social History Social History Smoking Status: Former smoker Use of substances other than those prescribed or required for medical reasons: No Advance Directives: No Advance Directives Information Provided: No Physical Exam Vital Signs: Vital Signs: Last Vital Signs Temp 96.4 F L 06/18/20 22:26 Pulse 86 06/18/20 22:26 Resp 16 06/18/20 22:26 BP 103/65 06/18/20 22:26 Pulse Ox 96 06/18/20 22:26 Body Mass Index 25.2 Procedures Central Line Placement Left IJ: Time Out Performed: Yes Patient Placed on Monitor/Pulse Ox: Yes Prep: mask, gown and gloves Central Line Prep: Chlorhexidine scrub Local Anesthetic: lidocaine 1% Amount of anesthesia used (mL): 3 Ultrasound Used for Placement: Yes Central Line Lumen Inserted: triple Post Procedure: sutured in place, good blood return, all ports aspirated, flushed, capped and sterile dressing applied Post Procedure X-Ray: no pneumothorax seen and other (Tip of the catheter curved in subclavian vein and IJ junction) Patient Tolerated Procedure: well Complications: none MDM - SOB/Dyspnea MDM Narrative Medical decision making narrative: Patient seen and re-evaluated discharge summary from [facility] was reviewed, came here for hypoxia workup showed bilateral pneumonia with septic shock requiring vasopressors also has a sacral chronic ulcer. Patient is DNR DNI on IV antibiotics vancomycin and Levaquin will admit to ICU. Position of left IJ catheter were discussed with log brander at this time has a good blood draw and IV fluids are running good does not want to change the catheter Lab Data Attestation: I reviewed the patient's lab results. Result diagrams: 06/18/20 14:37 06/18/20 14:38 Labs: Lab Results 06/18/20 06/18/20 06/18/20 Range/Units 14:13 14:37 14:38 WBC 15.9 H (4.8-10.8) X10*3/uL RBC 2.57 L (4.60-5.80) X10*6/uL Hgb 9.5 L (14.0-18.0) g/dl Hct 28.8 L (42-52) % MCV 112.1 H (80-98) fL MCH 37.0 H (27.0-33.0) pg MCHC 33.0 (31.0-36.0) g/dl RDW 21.0 H (11.0-16.0) % Plt Count 87 L (160-400) X10*3/uL MPV 11.0 (9.4-12.4) fL Immature Gran % (Auto) 0.9 H (0.0-0.4) % Neut % (Auto) 84.5 H (45-73) % Lymph % (Auto) 5.8 L (20-40) % [place] % (Auto) 8.4 (2-11) % Eos % (Auto) 0.0 (0-4) % Baso % (Auto) 0.4 (0-2) % Lymph # (Auto) 0.9 L (1.2-4.9) X10*3/uL [place] # (Auto) 1.3 H (0.1-1.2) X10*3/uL Eos # (Auto) 0.0 (0.0-0.4) X10*3/uL Baso # (Auto) 0.1 (0.0-0.2) X10*3/uL Abs Immat Gran (auto) 0.15 H (0.00-0.03) X10*3/uL Absolute Neuts (auto) 13.4 H (2.0-8.3) X10*3/uL Absolute Nucleated RBC 0.000 (0.0-0.012) X10*3/uL Nucleated RBC % (auto) 0.0 (0.0-0.2) /100WBC ESR (0-15) MM/HR PT 23.6 H (10.8-13.0) SEC INR 2.0 H (0.9-1.1) Sodium 132 L (135-145) mmol/L Potassium 4.6 (3.3-5.1) mmol/L Chloride 102 (96-108) mmol/L Carbon Dioxide 19 L (22-29) mmol/L Anion Gap 16 (12-20) BUN 25 H (9-16) mg/dL Creatinine 1.03 (0.5-1.4) mg/dL Estim Creat Clear Calc 49.0 Estimated GFR > 60 Random Glucose 85 (60-115) mg/dL Lactic Acid (0.5-2.0) mmol/L Lactic Acid Fup @ 2Hr (0.5-2.0) mmol/L Calcium 7.1 L (8.4-10.2) mg/dL Total Bilirubin 4.3 H (0.0-1.0) mg/dL Direct Bilirubin 2.3 H (0.0-0.5) mg/dL AST 47 H (5-37) U/L ALT 22 (0-40) U/L Alkaline Phosphatase 195 H (39-117) U/L C-Reactive Protein 8.51 H (< or = 0.50) mg/dL B-Natriuretic Peptide (<100) pg/mL Total Protein 5.8 L (6.5-8.0) g/dL Albumin 1.9 L (3.5-5.0) g/dL Urine Color Urine Appearance Urine pH (5.0-8.0) Ur Specific [place] (1.005-1.025) Urine Protein (NEG-TRACE) MG/DL Urine Glucose (UA) (NEG) MG/DL Urine Ketones (NEG) MG/DL Urine Blood (NEG) Urine Nitrite (NEG) Ur Leukocyte Esterase (NEG) Urine Opiates Screen (Not Detect) Ur Barbiturates Screen (Not Detect) Ur Phencyclidine Scrn (Not Detect) Ur Amphetamines Screen (Not Detect) U Benzodiazepines Scrn (Not Detect) Urine Cocaine Screen (Not Detect) U Marijuana (THC) Screen (Not Detect) Coronavirus (PCR) (Negative) Influenza Type A (PCR) (Negative) Influenza Type B (PCR) (Negative) RSV RNA Qual (PCR) (Negative) 06/18/20 06/18/20 06/18/20 Range/Units 15:00 15:01 15:01 WBC (4.8-10.8) X10*3/uL RBC (4.60-5.80) X10*6/uL Hgb (14.0-18.0) g/dl Hct (42-52) % MCV (80-98) fL MCH (27.0-33.0) pg MCHC (31.0-36.0) g/dl RDW (11.0-16.0) % Plt Count (160-400) X10*3/uL MPV (9.4-12.4) fL Immature Gran % (Auto) (0.0-0.4) % Neut % (Auto) (45-73) % Lymph % (Auto) (20-40) % [place] % (Auto) (2-11) % Eos % (Auto) (0-4) % Baso % (Auto) (0-2) % Lymph # (Auto) (1.2-4.9) X10*3/uL [place] # (Auto) (0.1-1.2) X10*3/uL Eos # (Auto) (0.0-0.4) X10*3/uL Baso # (Auto) (0.0-0.2) X10*3/uL Abs Immat Gran (auto) (0.00-0.03) X10*3/uL Absolute Neuts (auto) (2.0-8.3) X10*3/uL Absolute Nucleated RBC (0.0-0.012) X10*3/uL Nucleated RBC % (auto) (0.0-0.2) /100WBC ESR 25 H (0-15) MM/HR PT (10.8-13.0) SEC INR (0.9-1.1) Sodium (135-145) mmol/L Potassium (3.3-5.1) mmol/L Chloride (96-108) mmol/L Carbon Dioxide (22-29) mmol/L Anion Gap (12-20) BUN (9-16) mg/dL Creatinine (0.5-1.4) mg/dL Estim Creat Clear Calc Estimated GFR Random Glucose (60-115) mg/dL Lactic Acid 4.0 H* (0.5-2.0) mmol/L Lactic Acid Fup @ 2Hr (0.5-2.0) mmol/L Calcium (8.4-10.2) mg/dL Total Bilirubin (0.0-1.0) mg/dL Direct Bilirubin (0.0-0.5) mg/dL AST (5-37) U/L ALT (0-40) U/L Alkaline Phosphatase (39-117) U/L C-Reactive Protein (< or = 0.50) mg/dL B-Natriuretic Peptide 485 H (<100) pg/mL Total Protein (6.5-8.0) g/dL Albumin (3.5-5.0) g/dL Urine Color Urine Appearance Urine pH (5.0-8.0) Ur Specific [place] (1.005-1.025) Urine Protein (NEG-TRACE) MG/DL Urine Glucose (UA) (NEG) MG/DL Urine Ketones (NEG) MG/DL Urine Blood (NEG) Urine Nitrite (NEG) Ur Leukocyte Esterase (NEG) Urine Opiates Screen (Not Detect) Ur Barbiturates Screen (Not Detect) Ur Phencyclidine Scrn (Not Detect) Ur Amphetamines Screen (Not Detect) U Benzodiazepines Scrn (Not Detect) Urine Cocaine Screen (Not Detect) U Marijuana (THC) Screen (Not Detect) Coronavirus (PCR) (Negative) Influenza Type A (PCR) (Negative) Influenza Type B (PCR) (Negative) RSV RNA Qual (PCR) (Negative) 06/18/20 06/18/20 06/18/20 Range/Units 16:35 16:35 16:35 WBC (4.8-10.8) X10*3/uL RBC (4.60-5.80) X10*6/uL Hgb (14.0-18.0) g/dl Hct (42-52) % MCV (80-98) fL MCH (27.0-33.0) pg MCHC (31.0-36.0) g/dl RDW (11.0-16.0) % Plt Count (160-400) X10*3/uL MPV (9.4-12.4) fL Immature Gran % (Auto) (0.0-0.4) % Neut % (Auto) (45-73) % Lymph % (Auto) (20-40) % [place] % (Auto) (2-11) % Eos % (Auto) (0-4) % Baso % (Auto) (0-2) % Lymph # (Auto) (1.2-4.9) X10*3/uL [place] # (Auto) (0.1-1.2) X10*3/uL Eos # (Auto) (0.0-0.4) X10*3/uL Baso # (Auto) (0.0-0.2) X10*3/uL Abs Immat Gran (auto) (0.00-0.03) X10*3/uL Absolute Neuts (auto) (2.0-8.3) X10*3/uL Absolute Nucleated RBC (0.0-0.012) X10*3/uL Nucleated RBC % (auto) (0.0-0.2) /100WBC ESR (0-15) MM/HR PT (10.8-13.0) SEC INR (0.9-1.1) Sodium (135-145) mmol/L Potassium (3.3-5.1) mmol/L Chloride (96-108) mmol/L Carbon Dioxide (22-29) mmol/L Anion Gap (12-20) BUN (9-16) mg/dL Creatinine (0.5-1.4) mg/dL Estim Creat Clear Calc Estimated GFR Random Glucose (60-115) mg/dL Lactic Acid (0.5-2.0) mmol/L Lactic Acid Fup @ 2Hr (0.5-2.0) mmol/L Calcium (8.4-10.2) mg/dL Total Bilirubin (0.0-1.0) mg/dL Direct Bilirubin (0.0-0.5) mg/dL AST (5-37) U/L ALT (0-40) U/L Alkaline Phosphatase (39-117) U/L C-Reactive Protein (< or = 0.50) mg/dL B-Natriuretic Peptide (<100) pg/mL Total Protein (6.5-8.0) g/dL Albumin (3.5-5.0) g/dL Urine Color DARK YELLOW Urine Appearance CLEAR Urine pH 5.5 (5.0-8.0) Ur Specific [place] 1.025 (1.005-1.025) Urine Protein NEG (NEG-TRACE) MG/DL Urine Glucose (UA) NEG (NEG) MG/DL Urine Ketones NEG (NEG) MG/DL Urine Blood NEG (NEG) Urine Nitrite NEG (NEG) Ur Leukocyte Esterase NEG (NEG) Urine Opiates Screen Not Detected (Not Detect) Ur Barbiturates Screen Not Detected (Not Detect) Ur Phencyclidine Scrn Not Detected (Not Detect) Ur Amphetamines Screen Not Detected (Not Detect) U Benzodiazepines Scrn Not Detected (Not Detect) Urine Cocaine Screen Not Detected (Not Detect) U Marijuana (THC) Screen Not Detected (Not Detect) Coronavirus (PCR) NEGATIVE (Negative) Influenza Type A (PCR) NEGATIVE (Negative) Influenza Type B (PCR) NEGATIVE (Negative) RSV RNA Qual (PCR) NEGATIVE (Negative) 06/18/20 Range/Units 22:16 WBC (4.8-10.8) X10*3/uL RBC (4.60-5.80) X10*6/uL Hgb (14.0-18.0) g/dl Hct (42-52) % MCV (80-98) fL MCH (27.0-33.0) pg MCHC (31.0-36.0) g/dl RDW (11.0-16.0) % Plt Count (160-400) X10*3/uL MPV (9.4-12.4) fL Immature Gran % (Auto) (0.0-0.4) % Neut % (Auto) (45-73) % Lymph % (Auto) (20-40) % [place] % (Auto) (2-11) % Eos % (Auto) (0-4) % Baso % (Auto) (0-2) % Lymph # (Auto) (1.2-4.9) X10*3/uL [place] # (Auto) (0.1-1.2) X10*3/uL Eos # (Auto) (0.0-0.4) X10*3/uL Baso # (Auto) (0.0-0.2) X10*3/uL Abs Immat Gran (auto) (0.00-0.03) X10*3/uL Absolute Neuts (auto) (2.0-8.3) X10*3/uL Absolute Nucleated RBC (0.0-0.012) X10*3/uL Nucleated RBC % (auto) (0.0-0.2) /100WBC ESR (0-15) MM/HR PT (10.8-13.0) SEC INR (0.9-1.1) Sodium (135-145) mmol/L Potassium (3.3-5.1) mmol/L Chloride (96-108) mmol/L Carbon Dioxide (22-29) mmol/L Anion Gap (12-20) BUN (9-16) mg/dL Creatinine (0.5-1.4) mg/dL Estim Creat Clear Calc Estimated GFR Random Glucose (60-115) mg/dL Lactic Acid (0.5-2.0) mmol/L Lactic Acid Fup @ 2Hr 2.5 H* (0.5-2.0) mmol/L Calcium (8.4-10.2) mg/dL Total Bilirubin (0.0-1.0) mg/dL Direct Bilirubin (0.0-0.5) mg/dL AST (5-37) U/L ALT (0-40) U/L Alkaline Phosphatase (39-117) U/L C-Reactive Protein (< or = 0.50) mg/dL B-Natriuretic Peptide (<100) pg/mL Total Protein (6.5-8.0) g/dL Albumin (3.5-5.0) g/dL Urine Color Urine Appearance Urine pH (5.0-8.0) Ur Specific [place] (1.005-1.025) Urine Protein (NEG-TRACE) MG/DL Urine Glucose (UA) (NEG) MG/DL Urine Ketones (NEG) MG/DL Urine Blood (NEG) Urine Nitrite (NEG) Ur Leukocyte Esterase (NEG) Urine Opiates Screen (Not Detect) Ur Barbiturates Screen (Not Detect) Ur Phencyclidine Scrn (Not Detect) Ur Amphetamines Screen (Not Detect) U Benzodiazepines Scrn (Not Detect) Urine Cocaine Screen (Not Detect) U Marijuana (THC) Screen (Not Detect) Coronavirus (PCR) (Negative) Influenza Type A (PCR) (Negative) Influenza Type B (PCR) (Negative) RSV RNA Qual (PCR) (Negative) Critical Care Time Critical Care Time Critical Care Time: Yes Total Critical Care Time: 70 Attestation: I spent 70 minutes of critical care, with interventions, assessments, speaking to patient, consultants, and family. Discharge Plan Discharge Clinical Impression: Septic shock Pneumonia Qualifiers: Pneumonia type: due to unspecified organism Laterality: unspecified laterality Lung location: unspecified part of lung Qualified Code(s): J18.9 - Pneumonia, unspecified organism Chronic liver failure Qualifiers: Hepatic coma status: without hepatic coma Qualified Code(s): K72.10 - Chronic hepatic failure without coma Patient Disposition: Admitted As Inpatient
[2020-06-18] MEDS: Albumin Human 25 % 100 ML IV (18:37)
[2020-06-18] MEDS: vancomycin HCL 1,000 MG in 0.9 % Sodium Chloride 250 ML 270 MG IV (18:45)
[2020-06-18] MEDS: 0.9 % Sodium Chloride 500 ML 999 ML IVCONT (19:04)
--- NOTE | 2020-06-18 19:12 | PC.NURSE ---
see printed vs in the chart
--- NOTE | 2020-06-18 19:37 | PC.NURSE ---
central line repositioned by provider. patient tolerated well. xray confirmed placement.
--- NOTE | 2020-06-18 19:49 | PC.NURSE ---
core temp mustafa placed by this rn for temp monitoring and ua output.
--- NOTE | 2020-06-18 21:52 | PC.NURSE ---
pt repositioned to left side post ct. at this time, patient positioned to right side. bp decreased. increased levo to 0.07mcg/kg/min. aware.
--- NOTE | 2020-06-18 22:13 | PC.NURSE ---
LATE ENTRY: 1900-CALLED PHELB TODRAW LACTIC. 2099-CALLED PHLEB TO DRAW LACTIC 2212-PHLEB TO BEDSIDE TO DRAW LACTIC NOW.
--- NOTE | 2020-06-18 22:27 | PC.NURSE ---
movie projectionist CUT OUT MARKER at bedside. pt alert, following commands. awaits room in ICU.
--- NOTE | 2020-06-18 22:37 | P.HPCC_ITS ---
History of Present Illness Date of Service: 06/18/20 Chief Complaint: Shortness of breath This is a 85-year-old male with an extensive past medical history including diastolic heart failure ( last echo,04/14/2020 at [facility], EF 60-65%), atrial fibrillation (not on anticoagulation) sick sinus syndrome status post pacemaker ( since the 2012), hypertension, hyperlipidemia, dysphagia, liver cirrhosis, chronic thrombocytopenia, anemia, unstageable coccyx wound, who also has had multiple admissions to hospital since March including UTI septic shock, as well as right femur neck fracture with surgical repair on 06/04/2020 [facility]. He presented today to the emergency room from [facility], [facility] after all O2 saturation in the 70s on room air. On arrival to the emergency room the patient was alert and oriented x3 and vital signs were stable, but later he developed a fever to 101, and became hypotensive to the SBP to 70s. Laboratory data significant for WBC 15.9, platelets 87, sodium 134, bicarb 21, lactic acid 4, calcium 7.2, total billirubin 4.3, AST 47, Alk phos 195, total protein albumin 1.9, BNP 485. Urine: negative for UTI Imaging: Chest CT: appears to have bilateral pneumonia Abdomen/Pelvis CT: Cirrhosis and ascites. Anasarca. Possible cellulitis superficial to the sacrum without evidence of underlying osteomyelitis.Postsurgical changes of the right hip with fluid collection deep to the iliotibial band. 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 ER course: he received 3 L of non normal saline, vancomycin 1 g, levofloxacin 500, Albumin 200ml, and ultimately require Levophed for severe hypotension In the ED, code status was addressed with patient as well as . In the in the beginning patient wanted to be made SCUBA DIVER, but an agreement between patient and , patient is now a DNR/DNI. MOLST form was completed by ED physician. DNR/DNI order in chart Review of Systems Constitutional: Constitutional: Denies body ache(s), Denies chills, Reports malaise and Reports poor appetite Eyes: Eyes: Denies blurry vision ENT: Denies dizziness Cardiovascular: Cardiovascular: Denies chest pain, Denies rapid heart rate, Reports leg edema and Reports dyspnea Respiratory: Respiratory: Reports cough and Reports dyspnea Gastrointestinal: Gastrointestinal: Denies abdominal pain, Denies diarrhea, Denies nausea and Denies vomiting Musculoskeletal: Musculoskeletal: Reports joint swelling Integumentary/Breasts: Comments: Sacral wound Neurologic: Denies dizziness PMFSH Past Medical History Medical History (Updated 06/18/20 @ 23:55 by Casper Gutierrez) Acute kidney failure Acute renal injury due to sepsis Ascending aorta dilatation Atrial fibrillation Carotid artery dissection Carotid artery stenosis Cerebral arterial aneurysm Chronic diastolic heart failure Fracture of right hip Hearing loss Hepatic failure HTN (hypertension) Hyperlipidemia Hypokalemia Hoyt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 Pacemaker 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) Septic shock Sick sinus syndrome Surgical History Surgical History (Updated 06/18/20 @ 22:18 by Victor Manuel Kennedy MD) History of surgery for cerebral aneurysm Status post right shoulder hemiarthroplasty Social History Social History Smoking Status: Former smoker Use of substances other than those prescribed or required for medical reasons: No Advance Directives: No Advance Directives Information Provided: No Meds Allergies Allergy/AdvReac Type Severity Reaction Status Date / Time No Known Allergies Allergy Verified 06/15/20 14:28 Active Medications: Current Medications Generic Name Dose Route Start Last Admin Trade Name Freq PRN Reason Stop Dose Admin Heparin Sodium (Porcine) 5,000 unit 06/18/20 23:00 Heparin Sodium,Porcine 5,000 Unit/Ml Vial SUBCUT Q8H GIOVANNI Albumin Human 100 mls @ 100 mls/hr 06/18/20 18:00 06/18/20 19:59 Kedbumin 25 % IV 06/19/20 12:59 Infused Q6H GIOVANNI Infusion Norepinephrine Bitartrate 8 mg in 250 mls @ 0 mls/hr 06/18/20 18:45 06/18/20 21:49 Levophed IVCONT 0.7 mcg/kg/min .Q0M GIOVANNI 93.19 mls/hr Titration Protocol Per Protocol Home Medications Medication Instructions Recorded Confirmed Last Taken Type albuterol sulfate 2 puff INHALATION TID PRN 06/18/20 06/18/20 Unknown History coenzyme Q10 [Co Q-10] 300 mg PO DAILY 06/18/20 06/18/20 Unknown History metoprolol succinate 0.5 tab PO DAILY 06/18/20 06/18/20 Unknown History oxycodone 5 mg PO Q4-6H 06/18/20 06/18/20 Unknown History potassium chloride 1 tab PO DAILY 06/18/20 06/18/20 Unknown History Physical Exam Vital Signs: Vital Signs: Last Vital Signs Temp 96.4 F L 06/18/20 22:26 Pulse 86 06/18/20 22:26 Resp 16 06/18/20 22:26 BP 103/65 06/18/20 22:26 Pulse Ox 96 06/18/20 22:26 Body Mass Index 25.2 Focused exam at 2200 Patient alert and oriented x3, in no acute distress. temperature 96.1. Lungs with rhonchi primarily a bases. Satting 95% on 2L via NC , tachypneic to 22, S1- S2 present. No M/R/G. Normal capillary refill, pulses present in all extremities. Normal cap refill. Abdomen soft, + bowel sounds in all quadrants. Able to move all extremities to command. Pitting edema on bilateral lower extremities Results Labs CBC and Chem 7: 06/18/20 14:37 06/18/20 14:38 Labs: Laboratory Results - last 24 hr 06/18/20 06/18/20 06/18/20 14:13 14:37 14:38 MCV 112.1 H MCH 37.0 H MCHC 33.0 RDW 21.0 H Plt Count 87 L MPV 11.0 Immature Gran % (Auto) 0.9 H Neut % (Auto) 84.5 H Lymph % (Auto) 5.8 L [place] % (Auto) 8.4 Eos % (Auto) 0.0 Baso % (Auto) 0.4 Lymph # (Auto) 0.9 L [place] # (Auto) 1.3 H Eos # (Auto) 0.0 Baso # (Auto) 0.1 Abs Immat Gran (auto) 0.15 H Absolute Neuts (auto) 13.4 H Absolute Nucleated RBC 0.000 Nucleated RBC % (auto) 0.0 ESR PT 23.6 H INR 2.0 H Anion Gap 16 Estim Creat Clear Calc 49.0 Estimated GFR > 60 Random Glucose 85 Lactic Acid Calcium 7.1 L Total Bilirubin 4.3 H Direct Bilirubin 2.3 H AST 47 H ALT 22 Alkaline Phosphatase 195 H C-Reactive Protein 8.51 H B-Natriuretic Peptide Total Protein 5.8 L Albumin 1.9 L Urine Color Urine Appearance Urine pH Ur Specific [place] Urine Protein Urine Glucose (UA) Urine Ketones Urine Blood Urine Nitrite Ur Leukocyte Esterase Urine Opiates Screen Ur Barbiturates Screen Ur Phencyclidine Scrn Ur Amphetamines Screen U Benzodiazepines Scrn Urine Cocaine Screen U Marijuana (THC) Screen Coronavirus (PCR) Influenza Type A (PCR) Influenza Type B (PCR) RSV RNA Qual (PCR) 06/18/20 06/18/20 06/18/20 15:00 15:01 15:01 MCV MCH MCHC RDW Plt Count MPV Immature Gran % (Auto) Neut % (Auto) Lymph % (Auto) [place] % (Auto) Eos % (Auto) Baso % (Auto) Lymph # (Auto) [place] # (Auto) Eos # (Auto) Baso # (Auto) Abs Immat Gran (auto) Absolute Neuts (auto) Absolute Nucleated RBC Nucleated RBC % (auto) ESR 25 H PT INR Anion Gap Estim Creat Clear Calc Estimated GFR Random Glucose Lactic Acid 4.0 H* Calcium Total Bilirubin Direct Bilirubin AST ALT Alkaline Phosphatase C-Reactive Protein B-Natriuretic Peptide 485 H Total Protein Albumin Urine Color Urine Appearance Urine pH Ur Specific [place] Urine Protein Urine Glucose (UA) Urine Ketones Urine Blood Urine Nitrite Ur Leukocyte Esterase Urine Opiates Screen Ur Barbiturates Screen Ur Phencyclidine Scrn Ur Amphetamines Screen U Benzodiazepines Scrn Urine Cocaine Screen U Marijuana (THC) Screen Coronavirus (PCR) Influenza Type A (PCR) Influenza Type B (PCR) RSV RNA Qual (PCR) 06/18/20 06/18/20 06/18/20 16:35 16:35 16:35 MCV MCH MCHC RDW Plt Count MPV Immature Gran % (Auto) Neut % (Auto) Lymph % (Auto) [place] % (Auto) Eos % (Auto) Baso % (Auto) Lymph # (Auto) [place] # (Auto) Eos # (Auto) Baso # (Auto) Abs Immat Gran (auto) Absolute Neuts (auto) Absolute Nucleated RBC Nucleated RBC % (auto) ESR PT INR Anion Gap Estim Creat Clear Calc Estimated GFR Random Glucose Lactic Acid Calcium Total Bilirubin Direct Bilirubin AST ALT Alkaline Phosphatase C-Reactive Protein B-Natriuretic Peptide Total Protein Albumin Urine Color DARK YELLOW Urine Appearance CLEAR Urine pH 5.5 Ur Specific [place] 1.025 Urine Protein NEG Urine Glucose (UA) NEG Urine Ketones NEG Urine Blood NEG Urine Nitrite NEG Ur Leukocyte Esterase NEG Urine Opiates Screen Not Detected Ur Barbiturates Screen Not Detected Ur Phencyclidine Scrn Not Detected Ur Amphetamines Screen Not Detected U Benzodiazepines Scrn Not Detected Urine Cocaine Screen Not Detected U Marijuana (THC) Screen Not Detected Coronavirus (PCR) NEGATIVE Influenza Type A (PCR) NEGATIVE Influenza Type B (PCR) NEGATIVE RSV RNA Qual (PCR) NEGATIVE Imaging Radiologist's Impressions: Impressions Chest X-Ray 06/18/20 12:35 IMPRESSION: Hypoexpanded lungs with patchy opacities in bilateral mid lung region suspicious for developing infiltrates aerated Chest X-Ray 06/18/20 18:33 IMPRESSION: Left internal jugular central venous line tip at the junction between internal jugular vein and left subclavian vein, with tip coiled laterally. Increased hazy opacity at the left lung base, that may represent atelectasis or infiltrate. Small left pleural effusion. Findings were discussed with Dr. Kennedy at 7:06 PM on 06/18/2020. Abdomen/Pelvis CT 06/18/20 18:34 IMPRESSION: Cirrhosis and ascites. Anasarca. Moderate left and small right pleural effusions. Bibasilar atelectasis and areas of mild consolidation and groundglass attenuation. Cannot exclude multifocal pneumonia. The left IJ catheter courses into the left superior intercostal vein and should be repositioned. Destruction of the T11-T12 endplates with vertebral body height loss and irregularity suggests discitis/osteomyelitis. Although this appears chronic, cannot exclude active infection. No priors for comparison. Correlate clinically. Possible cellulitis superficial to the sacrum without evidence of underlying osteomyelitis. Postsurgical changes of the right hip with fluid collection deep to the iliotibial band. 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 . Chest X-Ray 06/18/20 19:32 IMPRESSION: The left IJ catheter probably extends into the internal mammary. This critical result was discussed with Dr. Kennedy at 8:20 PM on the evening of the exam and it was ascertained that the content and urgency of the report was understood at the time of direct communication. Chest X-Ray 06/18/20 19:35 IMPRESSION: The left IJ catheter probably extends into the internal mammary. This critical result was discussed with Dr. Kennedy at 8:20 PM on the evening of the exam and it was ascertained that the content and urgency of the report was understood at the time of direct communication. Chest CT 03/14/21 19:37 IMPRESSION: Cirrhosis and ascites. Anasarca. Moderate left and small right pleural effusions. Bibasilar atelectasis and areas of mild consolidation and groundglass attenuation. Cannot exclude multifocal pneumonia. The left IJ catheter courses into the left superior intercostal vein and should be repositioned. Destruction of the T11-T12 endplates with vertebral body height loss and irregularity suggests discitis/osteomyelitis. Although this appears chronic, cannot exclude active infection. No priors for comparison. Correlate clinically. Possible cellulitis superficial to the sacrum without evidence of underlying osteomyelitis. Postsurgical changes of the right hip with fluid collection deep to the iliotibial band. 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 . Assessment and Plan (1) Septic shock: Status: Acute 85-year-old male with multifocal pneumonia, requiring pressors support Neuro: no acute issues Cardiac: Septic shock, with multifocal pneumonia being the source. On Levophed. Will continue antibiotics. Wean off pressors when appropriate. Pulmonary: Acute respiratory distress with hypoxemia- Chest x-ray with Bibasilar airspace disease, white count is elevated. Negative COVID test in the ED. Required some s upplemental oxygenation. Receive Levaquin/vancomycin the ED. Will continue antibiotics Renal: no acute issues Endo: No acute issues. GI: Elevated INR, INR 2 today. According to [facility] records, the patient has chronic elevated INR Likely due to chronic liver cirrhosis. Will hold DVT prophylaxis, and use compression device instead. ID: septic shock from multifocal pneumonia. Patient received Levaquin/vancomycin. Will continue Heme/Onc: Chronic thrombocytopenia / platelets 87 today. This is normal for the patient. Psych: No acute issues. Miscellaneous: Chronic unstageable coccyx wound: Being managed at acute rehab, will consult wound care in the morning Diet: Cardiac/ Mechanical soft prophylaxis: mechanical boots. No GI prophylaxis at this time Code: DNR/DNI Critical care time: X 60 minutes of critical care time (2) Chronic liver failure: Qualifiers: Hepatic coma status: without hepatic coma Qualified Code(s): K72.10 - Chronic hepatic failure without coma Status: Acute (3) Pneumonia: Qualifiers: Laterality: unspecified laterality Lung location: unspecified part of lung Pneumonia type: due to unspecified organism Qualified Code(s): J18.9 - Pneumonia, unspecified organism Status: Acute (4) Elevated INR: Status: Acute (5) Thrombocytopenia: Status: Acute (6) Acute respiratory failure with hypoxemia: Status: Acute
[2020-06-18 22:41] LABS: ~Lactic Acid-LAB USE ONLY 2.5 mmol/L (0.5-2.0)
--- NOTE | 2020-06-18 22:57 | PC.NURSE ---
attempted to call report cele sultana to call back.
--- NOTE | 2020-06-18 23:14 | PC.NURSE ---
per intensive director inpatient headache program okay to hold heparin due to high pt inr and bleeding around central line cite
--- NOTE | 2020-06-18 23:23 | PC.NURSE ---
lab contacted for overdue cbc. phleb to draw due to difficult stick.
[2020-06-19] VITALS (17 sets, daily range): BP systolic 95–135; BP diastolic 54–84; PULSE 82–105; RESP 14–27; TEMP 35.6–36.6; O2SAT 90–96; BMI 25.2
[2020-06-19 00:18] LABS: Reflex Lactate? 2 Y
[2020-06-19 00:30] LABS: Eosinophils Percent Auto 0.2 % (0-4); PLT CLUMP 1; SCAN SMEAR FLAG 1
[2020-06-19 00:32] LABS: Basophils Absolute Auto 0.1 X10*3/uL (0.0-0.2); Basophils Percent Auto 0.5 % (0-2); Hematocrit 24.1 % (42-52); Imm Gran Abs Auto 0.12 X10*3/uL (0.00-0.03); Imm Gran Pct Auto 0.8 % (0.0-0.4); Lymphocytes Absolute Auto 1.5 X10*3/uL (1.2-4.9); Lymphocytes Percent Auto 10.7 % (20-40); Mean Corpuscular HGB Conc 33.2 g/dl (31.0-36.0); Mean Corpuscular Hemoglobin 36.9 pg (27.0-33.0); Mean Platelet Volume 11.3 fL (9.4-12.4); Monocytes Absolute Auto 1.1 X10*3/uL (0.1-1.2); Monocytes Percent Auto 7.8 % (2-11); Neutrophils Absolute Auto 11.6 X10*3/uL (2.0-8.3); Platelet Count 78 X10*3/uL (160-400); Red Blood Count 2.17 X10*6/uL (4.60-5.80); White Blood Count 14.4 X10*3/uL (4.8-10.8)
[2020-06-19 00:36] LABS: MANUAL DIFF FLAG NO; Mean Corpuscular Volume 111.1 fL (80-98)
[2020-06-19 01:03] LABS: ~Lactic Acid-LAB USE ONLY 2.6 mmol/L (0.5-2.0)
[2020-06-19] MEDS: Albumin Human 25 % 100 ML IV ×3 (01:33→14:45)
[2020-06-19 05:48] LABS: MANUAL DIFF FLAG NO
[2020-06-19 05:59] LABS: Basophils Absolute Auto 0.1 X10*3/uL (0.0-0.2); Basophils Percent Auto 0.4 % (0-2); Eosinophils Percent Auto 0.2 % (0-4); Hematocrit 25.2 % (42-52); Hemoglobin 7.9 g/dl (14.0-18.0); Imm Gran Abs Auto 0.11 X10*3/uL (0.00-0.03); Imm Gran Pct Auto 0.9 % (0.0-0.4); Lymphocytes Percent Auto 8.2 % (20-40); Mean Corpuscular HGB Conc 31.3 g/dl (31.0-36.0); Mean Corpuscular Hemoglobin 36.4 pg (27.0-33.0); Mean Corpuscular Volume 116.1 fL (80-98); Mean Platelet Volume 10.7 fL (9.4-12.4); Monocytes Percent Auto 8.2 % (2-11); Neutrophils Absolute Auto 9.8 X10*3/uL (2.0-8.3); Neutrophils Percent Auto 82.1 % (45-73); Platelet Count 62 X10*3/uL (160-400); Red Blood Count 2.17 X10*6/uL (4.60-5.80); Red Cell Distribution Width 21.1 % (11.0-16.0); White Blood Count 11.9 X10*3/uL (4.8-10.8)
[2020-06-19 06:24] LABS: Alanine Aminotransferase 19 U/L (0-40); Albumin Level 2.4 g/dL (3.5-5.0); Alkaline Phosphatase 143 U/L (39-117); Anion Gap 14 (12-20); Aspartate Amino Transferase 37 U/L (5-37); Blood Urea Nitrogen 29 mg/dL (9-16); Calcium 7.3 mg/dL (8.4-10.2); Carbon Dioxide 20 mmol/L (22-29); Chloride 105 mmol/L (96-108); Creatinine Clr Calc Pharmacy 54.9; Estimated Glomerular Filt Rate > 60; Glucose Random 67 mg/dL (60-115); Magnesium 1.6 mg/dL (1.6-2.6); Sodium 135 mmol/L (135-145); Total Protein 5.3 g/dL (6.5-8.0)
[2020-06-19 07:23] LABS: Adenovirus PCR Not Detected (Not Detect.); Bordetella parapertussis PCR Not Detected (Not Detect.); Bordetella pertussis PCR Not Detected (Not Detect.); Chlamydia pneumoniae PCR Not Detected (Not Detect.); Coronavirus 229E PCR Not Detected (Not Detect.); Coronavirus HKU1 PCR Not Detected (Not Detect.); Coronavirus NL63 PCR Not Detected (Not Detect.); Coronavirus OC43 PCR Not Detected (Not Detect.); Human metapneumovirus PCR Not Detected (Not Detect.); Influenza A PCR Not Detected (Not Detect.); Influenza B PCR Not Detected (Not Detect.); Mycoplasma pneumoniae PCR Not Detected (Not Detect.); Parainfluenza 1 PCR Not Detected (Not Detect.); Parainfluenza 2 PCR Not Detected (Not Detect.); Parainfluenza 3 PCR Not Detected (Not Detect.); Parainfluenza 4 PCR Not Detected (Not Detect.); RSV PCR Not Detected (Not Detect.); Rhino/Enterovirus PCR Not Detected (Not Detect.); SARS-CoV-2 PCR Not Detected (Not Detect.)
[2020-06-19 07:58] LABS: Phosphorus 3.6 mg/dL (2.7-4.5)
--- NOTE | 2020-06-19 10:58 | MHC.CLN ---
RE: CONSULT RECOMMEND ADDING ENSURE TID, EMMA AND PROSOURCE TO PROMOTE WOUND HEALING MONITOR NH3 LEVELS CLOSELY SEE ALSO CLINICAL NUTRITION ASSESSMENT
--- NOTE | 2020-06-19 12:45 | P.PNCC_ITS ---
Subjective Subjective Date of Service: 06/19/20 Interval History: Mr. Delgado was admitted to the ICU late last night with presumed pneumonia and septic shock. The patient is an 85-year-old man with past medical history of: Cirrhosis w prev episiode of hepatic failure Chronic thrombocytopenia 2? above Atrial fibrillation, not on anticoagulation. 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 On arrival to the emergency room the patient was alert and oriented x3 and vital signs were stable w Sat 94- 96% on 2L NC, but later he developed a fever to 101, and became hypotensive to the SBP to 70s. Laboratory data significant for WBC 15.9, platelets 87, sodium 134, bicarb 21, BUN/creat 25/1.0, lactic acid 4, calcium 7.2, total billirubin 4.3, AST 47, Alk phos 195, albumin 1.9, BNP 485. U/A was negative. Chest CT showed bibasilar patchy consolidation that could be c/w pneumonia. Abdomen/Pelvis CT showed Cirrhosis, ascites, and anasarca. Possible cellulitis superficial to the sacrum without evidence of underlying osteomyelitis. Postsurgical changes of the right hip with fluid collection deep to the iliotibial band. 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 ER course: He received 3 L of normal saline, vancomycin 1 g, levofloxacin 500, Albumin 200ml, and ultimately required Levophed for hypotension, so he was admitted to ICU In the ED, code status was addressed with patient as well as . 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 MOLST form was completed by ED physic jin. Overnight he did well. This morning he?s off Levophed and off oxygen, breathing easy, with Sat 93-100% on room air. See vital signs below. For the hour or so that I observed him today, he didn?t cough once. He?s fully responsive but not fully appropriate at all times, seems slightly confused. Definitely icteric. No JVD at 30 degrees. Chest is clear to auscultation, with normal expiratory phase. + anasarca. LABORATORY DATA: As below. Notably, WBC is down. IMPRESSION: 1. Baseline cirrhosis (unkn etiology) w acites, thrombocytopenia, coagulopathy, and hypoalbuminemia. I?m assuming that his current bili level is prob his baseline. 2. ? pneumonia. Hard to say that someone who?s breathing easy, who?s not coughing, and has a Sat up to 100% on room air has pneumonia. Nevertheless, last night he did have a fever, and his CT does show infiltrates (at least in the LLL). It?s possible, maybe even more likely, that he aspirated yesterday resulting in relatively transient hypoxemia, fever, and hypotension, and the aspiration pneumonitis has pretty much resolved by today. Notwithstanding, it?s reasonable to give him a course of Abx. I?ve changed him to oral abx -- Augmentin -- and would suggest a five day course. 3. Septic shock. If he had septic shock, it?s now resolved. (In a patient with cirrhosis, the lactate level can?t be used as the main diagnostic criteria for sepsis or shock.) 4. ID. Note that this a patient with ascites, who had a fever and a WBC. An argument could be made for tapping his belly to make sure that he doesn?t have SBP. But since he?s clearly better now, a more conservative route, as outlined above, is prudent. 5. Renal: Current renal indices are very possibly his baseline 6. Coagulopathy. 2? cirrhosis. Have no proof that he?s noncorrectable. Therefore I?ve written him for a five dose course of Vit K (total 50mg). DVT prophylaxis with compression boots. 7. Chronic thrombocytopenia. 2? cirrhosis. 8. Hypoalbuminemia. 2? cirrhosis. 9. Skin/Soft tis: Chronic coccyx wound. Seen by wound care this morning. They assessed it as stage II, and suggested routine barrier care. Code status: DNR/DNI Stable for transfer to regular room. I will sign out to the hospitalists. Time: 82284 Physical Exam Vital Signs: Vital Signs: Last Vital Signs Temp 97.2 F 06/19/20 12:00 Pulse 102 H 06/19/20 12:00 Resp 25 H 06/19/20 12:00 BP 116/67 06/19/20 12:00 Pulse Ox 94 06/19/20 11:00 Body Mass Index 25.2 Objective Data Labs CBC & Chem 7: 06/19/20 05:13 06/19/20 05:13 Labs: Laboratory Results - last 24 hr 06/18/20 06/18/20 06/18/20 14:13 14:37 14:38 WBC 15.9 H RBC 2.57 L Hgb 9.5 L Hct 28.8 L MCV 112.1 H MCH 37.0 H MCHC 33.0 RDW 21.0 H Plt Count 87 L MPV 11.0 Immature Gran % (Auto) 0.9 H Neut % (Auto) 84.5 H Lymph % (Auto) 5.8 L [place] % (Auto) 8.4 Eos % (Auto) 0.0 Baso % (Auto) 0.4 Lymph # (Auto) 0.9 L [place] # (Auto) 1.3 H Eos # (Auto) 0.0 Baso # (Auto) 0.1 Abs Immat Gran (auto) 0.15 H Absolute Neuts (auto) 13.4 H Absolute Nucleated RBC 0.000 Nucleated RBC % (auto) 0.0 Smear Path Review ESR PT 23.6 H INR 2.0 H Sodium 132 L Potassium 4.6 Chloride 102 Carbon Dioxide 19 L Anion Gap 16 BUN 25 H Creatinine 1.03 Estim Creat Clear Calc 49.0 Estimated GFR > 60 Random Glucose 85 Lactic Acid Lactic Acid Fup @ 2Hr Lactic Acid Fup @ 4Hr Calcium 7.1 L Phosphorus Magnesium Total Bilirubin 4.3 H Direct Bilirubin 2.3 H AST 47 H ALT 22 Alkaline Phosphatase 195 H C-Reactive Protein 8.51 H B-Natriuretic Peptide Total Protein 5.8 L Albumin 1.9 L Urine Color Urine Appearance Urine pH Ur Specific [place] Urine Protein Urine Glucose (UA) Urine Ketones Urine Blood Urine Nitrite Ur Leukocyte Esterase Urine Opiates Screen Ur Barbiturates Screen Ur Phencyclidine Scrn Ur Amphetamines Screen U Benzodiazepines Scrn Urine Cocaine Screen U Marijuana (THC) Screen Respiratory Panel Rodriguez Adenovirus (Rapid PCR) B.pert (TEM-PCR) B.parapertussis DNA PCR C. pneumoniae DNA (PCR) Coronavirus (PCR) Coronavirus OC43 (PCR) Coronavirus HKU1 (PCR) Coronavirus 229E (PCR) Coronavirus NL63 (PCR) Human Metapneumovir PCR Influenza A (RT-PCR) Influenza Type A (PCR) Influenza B (RT-PCR) Influenza Type B (PCR) M. pneumoniae (PCR) Parainfluenza 1 (PCR) Parainfluenza 2 (PCR) Parainfluenza 3 (PCR) Parainfluenza 4 (PCR) RSV (PCR) RSV RNA Qual (PCR) Entero/Rhino (PCR) SARS-CoV-2 RNA (RT-PCR) 06/18/20 06/18/20 06/18/20 15:00 15:01 15:01 WBC RBC Hgb Hct MCV MCH MCHC RDW Plt Count MPV Immature Gran % (Auto) Neut % (Auto) Lymph % (Auto) [place] % (Auto) Eos % (Auto) Baso % (Auto) Lymph # (Auto) [place] # (Auto) Eos # (Auto) Baso # (Auto) Abs Immat Gran (auto) Absolute Neuts (auto) Absolute Nucleated RBC Nucleated RBC % (auto) Smear Path Review ESR 25 H PT INR Sodium Potassium Chloride Carbon Dioxide Anion Gap BUN Creatinine Estim Creat Clear Calc Estimated GFR Random Glucose Lactic Acid 4.0 H* Lactic Acid Fup @ 2Hr Lactic Acid Fup @ 4Hr Calcium Phosphorus Magnesium Total Bilirubin Direct Bilirubin AST ALT Alkaline Phosphatase C-Reactive Protein B-Natriuretic Peptide 485 H Total Protein Albumin Urine Color Urine Appearance Urine pH Ur Specific [place] Urine Protein Urine Glucose (UA) Urine Ketones Urine Blood Urine Nitrite Ur Leukocyte Esterase Urine Opiates Screen Ur Barbiturates Screen Ur Phencyclidine Scrn Ur Amphetamines Screen U Benzodiazepines Scrn Urine Cocaine Screen U Marijuana (THC) Screen Respiratory Panel Rodriguez Adenovirus (Rapid PCR) B.pert (TEM-PCR) B.parapertussis DNA PCR C. pneumoniae DNA (PCR) Coronavirus (PCR) Coronavirus OC43 (PCR) Coronavirus HKU1 (PCR) Coronavirus 229E (PCR) Coronavirus NL63 (PCR) Human Metapneumovir PCR Influenza A (RT-PCR) Influenza Type A (PCR) Influenza B (RT-PCR) Influenza Type B (PCR) M. pneumoniae (PCR) Parainfluenza 1 (PCR) Parainfluenza 2 (PCR) Parainfluenza 3 (PCR) Parainfluenza 4 (PCR) RSV (PCR) RSV RNA Qual (PCR) Entero/Rhino (PCR) SARS-CoV-2 RNA (RT-PCR) 06/18/20 06/18/20 06/18/20 16:35 16:35 16:35 WBC RBC Hgb Hct MCV MCH MCHC RDW Plt Count MPV Immature Gran % (Auto) Neut % (Auto) Lymph % (Auto) [place] % (Auto) Eos % (Auto) Baso % (Auto) Lymph # (Auto) [place] # (Auto) Eos # (Auto) Baso # (Auto) Abs Immat Gran (auto) Absolute Neuts (auto) Absolute Nucleated RBC Nucleated RBC % (auto) Smear Path Review ESR PT INR Sodium Potassium Chloride Carbon Dioxide Anion Gap BUN Creatinine Estim Creat Clear Calc Estimated GFR Random Glucose Lactic Acid Lactic Acid Fup @ 2Hr Lactic Acid Fup @ 4Hr Calcium Phosphorus Magnesium Total Bilirubin Direct Bilirubin AST ALT Alkaline Phosphatase C-Reactive Protein B-Natriuretic Peptide Total Protein Albumin Urine Color DARK YELLOW Urine Appearance CLEAR Urine pH 5.5 Ur Specific [place] 1.025 Urine Protein NEG Urine Glucose (UA) NEG Urine Ketones NEG Urine Blood NEG Urine Nitrite NEG Ur Leukocyte Esterase NEG Urine Opiates Screen Not Detected Ur Barbiturates Screen Not Detected Ur Phencyclidine Scrn Not Detected Ur Amphetamines Screen Not Detected U Benzodiazepines Scrn Not Detected Urine Cocaine Screen Not Detected U Marijuana (THC) Screen Not Detected Respiratory Panel Rodriguez Adenovirus (Rapid PCR) B.pert (TEM-PCR) B.parapertussis DNA PCR C. pneumoniae DNA (PCR) Coronavirus (PCR) NEGATIVE Coronavirus OC43 (PCR) Coronavirus HKU1 (PCR) Coronavirus 229E (PCR) Coronavirus NL63 (PCR) Human Metapneumovir PCR Influenza A (RT-PCR) Influenza Type A (PCR) NEGATIVE Influenza B (RT-PCR) Influenza Type B (PCR) NEGATIVE M. pneumoniae (PCR) Parainfluenza 1 (PCR) Parainfluenza 2 (PCR) Parainfluenza 3 (PCR) Parainfluenza 4 (PCR) RSV (PCR) RSV RNA Qual (PCR) NEGATIVE Entero/Rhino (PCR) SARS-CoV-2 RNA (RT-PCR) 06/18/20 06/19/20 06/19/20 22:16 00:24 00:24 WBC 14.4 H RBC 2.17 L Hgb 8.0 L Hct 24.1 L MCV 111.1 H MCH 36.9 H MCHC 33.2 RDW 21.0 H Plt Count 78 L MPV 11.3 Immature Gran % (Auto) 0.8 H Neut % (Auto) 80.0 H Lymph % (Auto) 10.7 L [place] % (Auto) 7.8 Eos % (Auto) 0.2 Baso % (Auto) 0.5 Lymph # (Auto) 1.5 [place] # (Auto) 1.1 Eos # (Auto) 0.0 Baso # (Auto) 0.1 Abs Immat Gran (auto) 0.12 H Absolute Neuts (auto) 11.6 H Absolute Nucleated RBC 0.000 Nucleated RBC % (auto) 0.0 Smear Path Review SEE NOTE ESR PT INR Sodium Potassium Chloride Carbon Dioxide Anion Gap BUN Creatinine Estim Creat Clear Calc Estimated GFR Random Glucose Lactic Acid Lactic Acid Fup @ 2Hr 2.5 H* Lactic Acid Fup @ 4Hr 2.6 H* Calcium Phosphorus Magnesium Total Bilirubin Direct Bilirubin AST ALT Alkaline Phosphatase C-Reactive Protein B-Natriuretic Peptide Total Protein Albumin Urine Color Urine Appearance Urine pH Ur Specific [place] Urine Protein Urine Glucose (UA) Urine Ketones Urine Blood Urine Nitrite Ur Leukocyte Esterase Urine Opiates Screen Ur Barbiturates Screen Ur Phencyclidine Scrn Ur Amphetamines Screen U Benzodiazepines Scrn Urine Cocaine Screen U Marijuana (THC) Screen Respiratory Panel Rodriguez Adenovirus (Rapid PCR) B.pert (TEM-PCR) B.parapertussis DNA PCR C. pneumoniae DNA (PCR) Coronavirus (PCR) Coronavirus OC43 (PCR) Coronavirus HKU1 (PCR) Coronavirus 229E (PCR) Coronavirus NL63 (PCR) Human Metapneumovir PCR Influenza A (RT-PCR) Influenza Type A (PCR) Influenza B (RT-PCR) Influenza Type B (PCR) M. pneumoniae (PCR) Parainfluenza 1 (PCR) Parainfluenza 2 (PCR) Parainfluenza 3 (PCR) Parainfluenza 4 (PCR) RSV (PCR) RSV RNA Qual (PCR) Entero/Rhino (PCR) SARS-CoV-2 RNA (RT-PCR) 06/19/20 06/19/20 06/19/20 05:06 05:13 05:13 WBC 11.9 H RBC 2.17 L Hgb 7.9 L Hct 25.2 L MCV 116.1 H D MCH 36.4 H MCHC 31.3 RDW 21.1 H Plt Count 62 L MPV 10.7 Immature Gran % (Auto) 0.9 H Neut % (Auto) 82.1 H Lymph % (Auto) 8.2 L [place] % (Auto) 8.2 Eos % (Auto) 0.2 Baso % (Auto) 0.4 Lymph # (Auto) 1.0 L [place] # (Auto) 1.0 Eos # (Auto) 0.0 Baso # (Auto) 0.1 Abs Immat Gran (auto) 0.11 H Absolute Neuts (auto) 9.8 H Absolute Nucleated RBC 0.000 Nucleated RBC % (auto) 0.0 Smear Path Review ESR PT INR Sodium 135 Potassium 4.0 Chloride 105 Carbon Dioxide 20 L Anion Gap 14 BUN 29 H Creatinine 0.92 Estim Creat Clear Calc 54.9 Estimated GFR > 60 Random Glucose 67 Lactic Acid Lactic Acid Fup @ 2Hr Lactic Acid Fup @ 4Hr Calcium 7.3 L Phosphorus Magnesium 1.6 Total Bilirubin 5.0 H Direct Bilirubin AST 37 ALT 19 Alkaline Phosphatase 143 H D C-Reactive Protein B-Natriuretic Peptide Total Protein 5.3 L Albumin 2.4 L D Urine Color Urine Appearance Urine pH Ur Specific [place] Urine Protein Urine Glucose (UA) Urine Ketones Urine Blood Urine Nitrite Ur Leukocyte Esterase Urine Opiates Screen Ur Barbiturates Screen Ur Phencyclidine Scrn Ur Amphetamines Screen U Benzodiazepines Scrn Urine Cocaine Screen U Marijuana (THC) Screen Respiratory Panel Rodriguez See Note Adenovirus (Rapid PCR) Not Detected B.pert (TEM-PCR) Not Detected B.parapertussis DNA PCR Not Detected C. pneumoniae DNA (PCR) Not Detected Coronavirus (PCR) Coronavirus OC43 (PCR) Not Detected Coronavirus HKU1 (PCR) Not Detected Coronavirus 229E (PCR) Not Detected Coronavirus NL63 (PCR) Not Detected Human Metapneumovir PCR Not Detected Influenza A (RT-PCR) Not Detected Influenza Type A (PCR) Influenza B (RT-PCR) Not Detected Influenza Type B (PCR) M. pneumoniae (PCR) Not Detected Parainfluenza 1 (PCR) Not Detected Parainfluenza 2 (PCR) Not Detected Parainfluenza 3 (PCR) Not Detected Parainfluenza 4 (PCR) Not Detected RSV (PCR) Not Detected RSV RNA Qual (PCR) Entero/Rhino (PCR) Not Detected SARS-CoV-2 RNA (RT-PCR) Not Detected 06/19/20 05:13 WBC RBC Hgb Hct MCV MCH MCHC RDW Plt Count MPV Immature Gran % (Auto) Neut % (Auto) Lymph % (Auto) [place] % (Auto) Eos % (Auto) Baso % (Auto) Lymph # (Auto) [place] # (Auto) Eos # (Auto) Baso # (Auto) Abs Immat Gran (auto) Absolute Neuts (auto) Absolute Nucleated RBC Nucleated RBC % (auto) Smear Path Review ESR PT INR Sodium Potassium Chloride Carbon Dioxide Anion Gap BUN Creatinine Estim Creat Clear Calc Estimated GFR Random Glucose Lactic Acid Lactic Acid Fup @ 2Hr Lactic Acid Fup @ 4Hr Calcium Phosphorus 3.6 Magnesium Total Bilirubin Direct Bilirubin AST ALT Alkaline Phosphatase C-Reactive Protein B-Natriuretic Peptide Total Protein Albumin Urine Color Urine Appearance Urine pH Ur Specific [place] Urine Protein Urine Glucose (UA) Urine Ketones Urine Blood Urine Nitrite Ur Leukocyte Esterase Urine Opiates Screen Ur Barbiturates Screen Ur Phencyclidine Scrn Ur Amphetamines Screen U Benzodiazepines Scrn Urine Cocaine Screen U Marijuana (THC) Screen Respiratory Panel [place] Adenovirus (Rapid PCR) B.pert (TEM-PCR) B.parapertussis DNA PCR C. pneumoniae DNA (PCR) Coronavirus (PCR) Coronavirus OC43 (PCR) Coronavirus HKU1 (PCR) Coronavirus 229E (PCR) Coronavirus NL63 (PCR) Human Metapneumovir PCR Influenza A (RT-PCR) Influenza Type A (PCR) Influenza B (RT-PCR) Influenza Type B (PCR) M. pneumoniae (PCR) Parainfluenza 1 (PCR) Parainfluenza 2 (PCR) Parainfluenza 3 (PCR) Parainfluenza 4 (PCR) RSV (PCR) RSV RNA Qual (PCR) Entero/Rhino (PCR) SARS-CoV-2 RNA (RT-PCR) Progress Note: A&P Time Spent With Patient Time: Total time spent is greater than 50% in coordination of care (as doc umented) at patient's floor/unit and/or counseling patient: Total time spent with greater than 50% in coordination of care (as documented) at patient's floor/unit and/or counseling patient:: 0
--- NOTE | 2020-06-19 13:43 | MHC.CM.PN ---
Attempted to speak with pt re: d/c planning: pt in process of receiving medical care. Call placed to pt's spouse, Tatiana at [phone]: message left for callback. Review of EMR notes pt arrived in ED from [facility]. Will re-refer in the event this will be the pt's disposition IMM mailed: HCP requested from Oral [facility] for [facility] [place]
[2020-06-19 13:46] LABS: Venous Blood Gas Refer to POC result
[2020-06-19 13:46] LABS: VBG Base Excess -4.9 mmol/L; VBG HCO3 19 mmol/L (22-26); VBG pCO2 34 mmHg; VBG pH 7.36 (7.32-7.43); VBG pO2 33 mmHg
[2020-06-19] MEDS: Phytonadione (Vit K1) 10 MG in 0.9 % Sodium Chloride 50 ML 51 MG IV ×2 (14:16→20:11)
[2020-06-19 14:19] LABS: Ammonia 34 umol/L (13-55)
--- NOTE | 2020-06-19 16:09 | P.CONWO_ITS ---
History of Present Illness Data of Consult Service Date: 06/19/20 Requesting physician: Giancarlo Hinton Primary Care Provider: Unknown Physician HPI Reason for consult: stage 2 PU right buttock 85-year-old male 1 month out from femur fracture s/p ORIF and in a rehab facility prior to arrival here. Recent history includes admission on June 18 after oxygen desaturation to 70% on room air. Diagnosed with pneumonia. Low platelets and septic shock confound his current picture. Chronic history liver failure, AFib, sick sinus syndrome, pacemaker placement. Ejection fraction is preserve. Complained of sacral pain upon arrival. Imaging shows no evidence of osteomyelitis of the sacrum however incidental Diskus is seen it T11-12 of unclear significance. 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) Septic shock Sick sinus syndrome Surgical History History of surgery for cerebral aneurysm Status post right shoulder hemiarthroplasty Social History Smoking Status: Former smoker Advance Directives Date on File: 06/18/20 service: No Current occupational status: retired [employer] Allergies Allergy/AdvReac Type Severity Reaction Status Date / Time No Known Allergies Allergy Verified 06/19/20 05:28 Active Medications: Current Medications Generic Name Dose Route Start Last Admin Trade Name Hoodq PRN Reason Stop Dose Admin Amoxicillin/Clavulanate Potassium 875 mg 06/19/20 18:00 Amoxicillin/Potassium Clav 875 Mg Tablet PO Q12H GIOVANNI Norepinephrine Bitartrate 8 mg in 250 mls @ 0 mls/hr 06/18/20 18:45 06/19/20 05:00 Levophed IVCONT 0 mcg/kg/min .Q0M GIOVANNI 0 mls/hr Titration Protocol Per Protocol Phytonadione 10 mg/ Sodium 51 mls @ 51 mls/hr 06/19/20 14:00 06/19/20 14:16 Chloride IV 06/20/20 14:59 51 mls/hr Q6H GIOVANNI Administration Home Medications Medication Instructions Recorded Confirmed Last Taken Type albuterol sulfate 2 puff INHALATION TID PRN 06/18/20 06/18/20 Unknown History coenzyme Q10 [Co Q-10] 300 mg PO DAILY 06/18/20 06/18/20 Unknown History metoprolol succinate 0.5 tab PO DAILY 06/18/20 06/18/20 Unknown History oxycodone 5 mg PO Q4-6H 06/18/20 06/18/20 Unknown History potassium chloride 1 tab PO DAILY 06/18/20 06/18/20 Unknown History Physical Exam Vital Signs and Narrative: Vital Signs: Last Vital Signs Temp 97.7 F 06/19/20 14:00 Pulse 102 H 06/19/20 14:00 Resp 23 H 06/19/20 14:00 BP 125/73 06/19/20 14:00 Pulse Ox 91 L 06/19/20 14:00 Body Mass Index 25.2 Approx 5 x 2 cm ulcer medial buttock along cleft line with open slit at the coccyx. Wound base is fibrinous but no eschar or obscuring necrosis is seen. Depth at this encounter is partial thickness. Periwound and surrounding tissues show brisk refill and full blanching. Violaceous hue of new tissue at wound edges. Slough seen at base of open slit wound coccyx, no odor or expressible purulence. No fluctuance. Results Labs CBC and Chem 7: 06/19/20 05:13 06/19/20 05:13 Labs: Laboratory Results - last 24 hr 06/18/20 06/18/20 06/18/20 16:35 16:35 16:35 MCV MCH MCHC RDW Plt Count MPV Immature Gran % (Auto) Neut % (Auto) Lymph % (Auto) [place] % (Auto) Eos % (Auto) Baso % (Auto) Lymph # (Auto) [place] # (Auto) Eos # (Auto) Baso # (Auto) Abs Immat Gran (auto) Absolute Neuts (auto) Absolute Nucleated RBC Nucleated RBC % (auto) Smear Path Review VBG pH VBG pCO2 VBG pO2 VBG HCO3 VBG O2 Saturation VBG Base Excess Anion Gap Estim Creat Clear Calc Estimated GFR Random Glucose Lactic Acid Fup @ 2Hr Lactic Acid Fup @ 4Hr Calcium Phosphorus Magnesium Total Bilirubin AST ALT Alkaline Phosphatase Ammonia Total Protein Albumin Urine Color DARK YELLOW Urine Appearance CLEAR Urine pH 5.[address] 1.025 Urine Protein NEG Urine Glucose (UA) NEG Urine Ketones NEG Urine Blood NEG Urine Nitrite NEG Ur Leukocyte Esterase NEG Urine Opiates Screen Not Detected Ur Barbiturates Screen Not Detected Ur Phencyclidine Scrn Not Detected Ur Amphetamines Screen Not Detected U Benzodiazepines Scrn Not Detected Urine Cocaine Screen Not Detected U Marijuana (THC) Screen Not Detected Respiratory Panel [place] Adenovirus (Rapid PCR) B.pert (TEM-PCR) B.parapertussis DNA PCR C. pneumoniae DNA (PCR) Coronavirus (PCR) NEGATIVE Coronavirus OC43 (PCR) Coronavirus HKU1 (PCR) Coronavirus 229E (PCR) Coronavirus NL63 (PCR) Human Metapneumovir PCR Influenza A (RT-PCR) Influenza Type A (PCR) NEGATIVE Influenza B (RT-PCR) Influenza Type B (PCR) NEGATIVE M. pneumoniae (PCR) Parainfluenza 1 (PCR) Parainfluenza 2 (PCR) Parainfluenza 3 (PCR) Parainfluenza 4 (PCR) RSV (PCR) RSV RNA Qual (PCR) NEGATIVE Entero/Rhino (PCR) SARS-CoV-2 RNA (RT-PCR) 06/18/20 06/19/20 06/19/20 22:16 00:24 00:24 MCV 111.1 H MCH 36.9 H MCHC 33.2 RDW 21.0 H Plt Count 78 L MPV 11.3 Immature Gran % (Auto) 0.8 H Neut % (Auto) 80.0 H Lymph % (Auto) 10.7 L [place] % (Auto) 7.8 Eos % (Auto) 0.2 Baso % (Auto) 0.5 Lymph # (Auto) 1.5 [place] # (Auto) 1.1 Eos # (Auto) 0.0 Baso # (Auto) 0.1 Abs Immat Gran (auto) 0.12 H Absolute Neuts (auto) 11.6 H Absolute Nucleated RBC 0.000 Nucleated RBC % (auto) 0.0 Smear Path Review SEE NOTE VBG pH VBG pCO2 VBG pO2 VBG HCO3 VBG O2 Saturation VBG Base Excess Anion Gap Estim Creat Clear Calc Estimated GFR Random Glucose Lactic Acid Fup @ 2Hr 2.5 H* Lactic Acid Fup @ 4Hr 2.6 H* Calcium Phosphorus Magnesium Total Bilirubin AST ALT Alkaline Phosphatase Ammonia Total Protein Albumin Urine Color Urine Appearance Urine pH Ur Specific Social Circle Urine Protein Urine Glucose (UA) Urine Ketones Urine Blood Urine Nitrite Ur Leukocyte Esterase Urine Opiates Screen Ur Barbiturates Screen Ur Phencyclidine Scrn Ur Amphetamines Screen U Benzodiazepines Scrn Urine Cocaine Screen U Marijuana (THC) Screen Respiratory Panel [place] Adenovirus (Rapid PCR) B.pert (TEM-PCR) B.parapertussis DNA PCR C. pneumoniae DNA (PCR) Coronavirus (PCR) Coronavirus OC43 (PCR) Coronavirus HKU1 (PCR) Coronavirus 229E (PCR) Coronavirus NL63 (PCR) Human Metapneumovir PCR Influenza A (RT-PCR) Influenza Type A (PCR) Influenza B (RT-PCR) Influenza Type B (PCR) M. pneumoniae (PCR) Parainfluenza 1 (PCR) Parainfluenza 2 (PCR) Parainfluenza 3 (PCR) Parainfluenza 4 (PCR) RSV (PCR) RSV RNA Qual (PCR) Entero/Rhino (PCR) SARS-CoV-2 RNA (RT-PCR) 06/19/20 06/19/20 06/19/20 05:06 05:13 05:13 MCV 116.1 H D MCH 36.4 H MCHC 31.3 RDW 21.1 H Plt Count 62 L MPV 10.7 Immature Gran % (Auto) 0.9 H Neut % (Auto) 82.1 H Lymph % (Auto) 8.2 L [place] % (Auto) 8.2 Eos % (Auto) 0.2 Baso % (Auto) 0.4 Lymph # (Auto) 1.0 L [place] # (Auto) 1.0 Eos # (Auto) 0.0 Baso # (Auto) 0.1 Abs Immat Gran (auto) 0.11 H Absolute Neuts (auto) 9.8 H Absolute Nucleated RBC 0.000 Nucleated RBC % (auto) 0.0 Smear Path Review VBG pH VBG pCO2 VBG pO2 VBG HCO3 VBG O2 Saturation VBG Base Excess Anion Gap 14 Estim Creat Clear Calc 54.9 Estimated GFR > 60 Random Glucose 67 Lactic Acid Fup @ 2Hr Lactic Acid Fup @ 4Hr Calcium 7.3 L Phosphorus Magnesium 1.6 Total Bilirubin 5.0 H AST 37 ALT 19 Alkaline Phosphatase 143 H D Ammonia Total Protein 5.3 L Albumin 2.4 L D Urine Color Urine Appearance Urine pH Ur Specific Social Circle Urine Protein Urine Glucose (UA) Urine Ketones Urine Blood Urine Nitrite Ur Leukocyte Esterase Urine Opiates Screen Ur Barbiturates Screen Ur Phencyclidine Scrn Ur Amphetamines Screen U Benzodiazepines Scrn Urine Cocaine Screen U Marijuana (THC) Screen Respiratory Panel Rodriguez See Note Adenovirus (Rapid PCR) Not Detected B.pert (TEM-PCR) Not Detected B.parapertussis DNA PCR Not Detected C. pneumoniae DNA (PCR) Not Detected Coronavirus (PCR) Coronavirus OC43 (PCR) Not Detected Coronavirus HKU1 (PCR) Not Detected Coronavirus 229E (PCR) Not Detected Coronavirus NL63 (PCR) Not Detected Human Metapneumovir PCR Not Detected Influenza A (RT-PCR) Not Detected Influenza Type A (PCR) Influenza B (RT-PCR) Not Detected Influenza Type B (PCR) M. pneumoniae (PCR) Not Detected Parainfluenza 1 (PCR) Not Detected Parainfluenza 2 (PCR) Not Detected Parainfluenza 3 (PCR) Not Detected Parainfluenza 4 (PCR) Not Detected RSV (PCR) Not Detected RSV RNA Qual (PCR) Entero/Rhino (PCR) Not Detected SARS-CoV-2 RNA (RT-PCR) Not Detected 06/19/20 06/19/20 06/19/20 05:13 13:39 13:53 MCV MCH MCHC RDW Plt Count MPV Immature Gran % (Auto) Neut % (Auto) Lymph % (Auto) [place] % (Auto) Eos % (Auto) Baso % (Auto) Lymph # (Auto) [place] # (Auto) Eos # (Auto) Baso # (Auto) Abs Immat Gran (auto) Absolute Neuts (auto) Absolute Nucleated RBC Nucleated RBC % (auto) Smear Path Review VBG pH 7.36 VBG pCO2 34 VBG pO2 33 VBG HCO3 19 L VBG O2 Saturation 46.0 VBG Base Excess -4.9 Anion Gap Estim Creat Clear Calc Estimated GFR Random Glucose Lactic Acid Fup @ 2Hr Lactic Acid Fup @ 4Hr Calcium Phosphorus 3.6 Magnesium Total Bilirubin AST ALT Alkaline Phosphatase Ammonia 34 Total Protein Albumin Urine Color Urine Appearance Urine pH Ur Specific Social Circle Urine Protein Urine Glucose (UA) Urine Ketones Urine Blood Urine Nitrite Ur Leukocyte Esterase Urine Opiates Screen Ur Barbiturates Screen Ur Phencyclidine Scrn Ur Amphetamines Screen U Benzodiazepines Scrn Urine Cocaine Screen U Marijuana (THC) Screen Respiratory Panel Rodriguez Adenovirus (Rapid PCR) B.pert (TEM-PCR) B.parapertussis DNA PCR C. pneumoniae DNA (PCR) Coronavirus (PCR) Coronavirus OC43 (PCR) Coronavirus HKU1 (PCR) Coronavirus 229E (PCR) Coronavirus NL63 (PCR) Human Metapneumovir PCR Influenza A (RT-PCR) Influenza Type A (PCR) Influenza B (RT-PCR) Influenza Type B (PCR) M. pneumoniae (PCR) Parainfluenza 1 (PCR) Parainfluenza 2 (PCR) Parainfluenza 3 (PCR) Parainfluenza 4 (PCR) RSV (PCR) RSV RNA Qual (PCR) Entero/Rhino (PCR) SARS-CoV-2 RNA (RT-PCR) Imaging Radiologist's Impressions: Impressions Chest X-Ray 06/18/20 18:33 IMPRESSION: Left internal jugular central venous line tip at the junction between internal jugular vein and left subclavian vein, with tip coiled laterally. Increased hazy opacity at the left lung base, that may represent atelectasis or infiltrate. Small left pleural effusion. Findings were discussed with Dr. Kennedy at 7:06 PM on 06/18/2020. Abdomen/Pelvis CT 06/18/20 18:34 IMPRESSION: Cirrhosis and ascites. Anasarca. Moderate left and small right pleural effusions. Bibasilar atelectasis and areas of mild consolidation and groundglass attenuation. Cannot exclude multifocal pneumonia. The left IJ catheter courses into the left superior intercostal vein and should be repositioned. Destruction of the T11-T12 endplates with vertebral body height loss and irregularity suggests discitis/osteomyelitis. Although this appears chronic, cannot exclude active infection. No priors for comparison. Correlate clinically. Possible cellulitis superficial to the sacrum without evidence of underlying osteomyelitis. Postsurgical changes of the right hip with fluid collection deep to the iliotibial band. 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 . Chest X-Ray 06/18/20 19:32 IMPRESSION: The left IJ catheter probably extends into the internal mammary. This critical result was discussed with Dr. Kennedy at 8:20 PM on the evening of the exam and it was ascertained that the content and urgency of the report was understood at the time of direct communication. Chest X-Ray 06/18/20 19:35 IMPRESSION: The left IJ catheter probably extends into the internal mammary. This critical result was discussed with Dr. Kennedy at 8:20 PM on the evening of the exam and it was ascertained that the content and urgency of the report was understood at the time of direct communication. Chest CT 06/18/20 19:37 IMPRESSION: Cirrhosis and ascites. Anasarca. Moderate left and small right pleural effusions. Bibasilar atelectasis and areas of mild consolidation and groundglass attenuation. Cannot exclude multifocal pneumonia. The left IJ catheter courses into the left superior intercostal vein and should be repositioned. Destruction of the T11-T12 endplates with vertebral body height loss and irregularity suggests discitis/osteomyelitis. Although this appears chronic, cannot exclude active infection. No priors for comparison. Correlate clinically. Possible cellulitis superficial to the sacrum without evidence of underlying osteomyelitis. Postsurgical changes of the right hip with fluid collection deep to the iliotibial band. 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 . Assessment and Plan (1) Stage II pressure ulcer of buttock: Start date: 06/19/20 Qualifiers: Laterality: right Qualified Code(s): L89.312 - Pressure ulcer of right buttock, stage 2 Problem details: Stage 2 PU right buttock Status: Acute 85-year-old male with recent hip fracture and impaired mobility residing in rehab facility for physical therapy with ?recently acquired stage II pressure ulcer of the right buttock. Entire chronicity is unclear however this ulcer was present upon this admission, as evidenced in the photos section of his chart, and developed before admission for this hospitalization. The dry nature and fibrinous base of this wound are preferable over maceration and therefore occlusive dressings are discouraged. Recommend zinc oxide for protection and continue pressure ulcer prevention protocol. Consider looking at nutritional status. Encourage immobilization. Watch for localized cellulitis around the coccyxgeal slit. Consider adding a small piece of silver alginate to this slit if drainage is seen but try to avoid foam dressings if possible.
[2020-06-19] MEDS: Amoxicillin/Potassium Clav 875 MG TABLET PO (17:46)
[2020-06-19 19:23] LABS: Phosphorus 3.6 mg/dL (2.7-4.5)
[2020-06-20] MEDS: Phytonadione (Vit K1) 10 MG in 0.9 % Sodium Chloride 50 ML 51 MG IV ×3 (01:51→14:45)
[2020-06-20 03:10] VITALS: BP 140/82; PULSE 72; RESP 20; TEMP 36.9; O2SAT 95
[2020-06-20] MEDS: Amoxicillin/Potassium Clav 875 MG TABLET PO (06:15)
[2020-06-20 06:16] LABS: Basophils Absolute Auto 0.1 X10*3/uL (0.0-0.2); Basophils Percent Auto 0.6 % (0-2); Lymphocytes Percent Auto 6.6 % (20-40); PLT CLUMP 1; SCAN SMEAR FLAG 1
[2020-06-20 06:18] LABS: Hematocrit 25.1 % (42-52); Hemoglobin 8.6 g/dl (14.0-18.0); Imm Gran Abs Auto 0.17 X10*3/uL (0.00-0.03); Imm Gran Pct Auto 1.2 % (0.0-0.4); Mean Corpuscular HGB Conc 34.3 g/dl (31.0-36.0); Mean Corpuscular Hemoglobin 37.2 pg (27.0-33.0); Mean Corpuscular Volume 108.7 fL (80-98); Monocytes Absolute Auto 1.1 X10*3/uL (0.1-1.2); Monocytes Percent Auto 7.9 % (2-11); Neutrophils Percent Auto 83.7 % (45-73); Platelet Count 76 X10*3/uL (160-400); Red Blood Count 2.31 X10*6/uL (4.60-5.80); Red Cell Distribution Width 21.2 % (11.0-16.0); White Blood Count 14.4 X10*3/uL (4.8-10.8)
[2020-06-20 06:26] LABS: MANUAL DIFF FLAG NO
[2020-06-20 06:58] LABS: Anion Gap 16 (12-20); Blood Urea Nitrogen 35 mg/dL (9-16); Calcium 7.8 mg/dL (8.4-10.2); Carbon Dioxide 20 mmol/L (22-29); Chloride 107 mmol/L (96-108); Creatinine Clr Calc Pharmacy 53.1; Estimated Glomerular Filt Rate > 60; Glucose Random 75 mg/dL (60-115); Potassium 4.6 mmol/L (3.3-5.1); Sodium 138 mmol/L (135-145)
[2020-06-20 07:55] VITALS: BP 108/76; PULSE 87; RESP 20; TEMP 36.7; O2SAT 93
--- NOTE | 2020-06-20 10:10 | P.PNIM_ITS ---
Subjective Subjective Date of Service: 06/20/20 Interval History: Follow up transfer from ICU, admitted with septic shock secondary to acute hypoxic respiratory failure secondary to aspiration pneumonia. having pain to his coccyx area that has stage II pressure ulcer. No complaints of breathing difficulties Physical Exam Vital Signs: Vital Signs: Last Vital Signs Temp 98.1 F 06/20/20 07:55 Pulse 87 06/20/20 07:55 Resp 20 06/20/20 07:55 BP 108/76 06/20/20 07:55 Pulse Ox 93 06/20/20 07:55 Body Mass Index 25.2 Appearing in no acute distress lung sounds normal expansion heart regular rate rhythm, clear S1, S2 nontender abdomen neuro patient is alert x3, no focal deficits Skin ecchymosis to mid back, stage II pressure ulcer to coccyx area with erythema surrounding, no eschar noted Objective Data Current Medications Generic Name Dose Route Start Last Admin Trade Name Freq PRN Reason Stop Dose Admin Amoxicillin/Clavulanate Potassium 875 mg 06/19/20 18:00 06/20/20 06:15 Amoxicillin/Potassium Clav 875 Mg Tablet PO 875 mg Q12H GIOVANNI Administration Phytonadione 10 mg/ Sodium 51 mls @ 51 mls/hr 06/19/20 14:00 06/20/20 09:31 Chloride IV 06/20/20 14:59 Infused Q6H GIOVANNI Infusion Labs CBC & Chem 7: 06/20/20 05:48 06/20/20 05:48 Microbiology Microbiology Results: Microbiology 06/18/20 14:38 Blood - Venous Blood Culture - Preliminary No growth after 24 hours. 06/18/20 14:14 Blood - Venous Blood Culture - Preliminary No growth after 24 hours. Assessment and Plan (1) Stage II pressure ulcer of buttock: Problem details: Stage 2 PU right buttock Status: Acute (2) Acute respiratory failure with hypoxemia: Status: Acute Assessment and Plan: 85-year-old man transferred from the ICU yesterday. Patient was initially admitted to the ER from [facility] with hypoxia. He was 70% on room air. During his ER stay he developed a fever of 101 and hypotension with systolic blood pressure in the 70s. CT scan showed bilateral infiltration and cirrhosis/ascites and anasarca which is mostly chronic due to patient's chronic liver disease. Due to his hypotension he required Levophed and was admitted to the ICU. 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 During the patient's ICU admission his blood pressure as well as oxygen saturation improved. He had a stage II coccyx pressure ulcer and was seen by the wound care who recommended routine barrier care. #Osteomyelitis/discitis. Noted on Chest CT. ? chronic. No upper/mid back tenderness -ID consult for further evaluation, ? need for MRI #Acute hypoxic respiratory failure. Likely related to aspiration pneumonia. Resolved. -continue supplemental oxygen as needed and wean down. #Aspiration Pneumonia - started on Augmentin while in the ED on dose #2 -Speech therapy evaluation # Protein calorie malnutrition - Add ensure to diet TID, River and Prosource #Cirrhosis with chronic pancytopenia, coagulopathy, hypoalbuminemia. -5 doses of vitamin K started in ICU one dose left for 06/20/20 -Follow PT/INR #Septic shock. Resolved. No further hypotension. -48 hr blood culture pending. #Stage II pressure ulcer. Present on admission. Bilateral coccyx area. Seen and evaluated by wound care -Silver aliginate daily to area of drainage, avoid occlusive dressing. Attending: Dr. Arzate
[2020-06-20 10:15] LABS: INTERNATIONAL NORM RATIO 2.3 (0.9-1.1); Prothrombin Time 27.4 SEC (10.8-13.0)
[2020-06-20 11:24] VITALS: BP 130/80; PULSE 89; RESP 20; TEMP 36.6; O2SAT 95
--- NOTE | 2020-06-20 13:36 | W.PM.IDCN ---
History of Present Illness Data of Consult Service Date: 06/20/20 Requesting physician: Keith Arzate Primary Care Provider: Unknown Physician HPI Reason for consult: possible infection ?osteomyelitis He presents to hospital from [facility] with weakness and found to have hypoxia with oxygen saturation of 70 He was seen by ICU as had transient hypotension and given Levaquin and Vancomycin His blood cultures are negative He has CT scan basilar infiltrates and small pleural effusions He has no back pain CT of chest also showed T11/T12 erosion and patient doesnt remember any back infection. He has no back pain at this time He has some sacral superficial abrasions and no osteomyelitis seen at this time. He had temperature of 101 on arrival. 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) Septic shock Sick sinus syndrome Family History Family history: reviewed and not pertinent Surgical History Surgical History History of surgery for cerebral aneurysm Status post right shoulder hemiarthroplasty Social History Social History Household Members: Spouse Housing: House Smoking Status: Former smoker Advance Directives Date on File: 06/18/20 service: No Current occupational status: retired Meds Allergies Allergy/AdvReac Type Severity Reaction Status Date / Time No Known Allergies Allergy Verified 06/19/20 05:28 Active Medications: Current Medications Generic Name Dose Route Start Last Admin Trade Name Freq PRN Reason Stop Dose Admin Amoxicillin/Clavulanate Potassium 875 mg 06/19/20 18:00 06/20/20 06:15 Amoxicillin/Potassium Clav 875 Mg Tablet PO 875 mg Q12H GIOVANNI Administration Phytonadione 10 mg/ Sodium 51 mls @ 51 mls/hr 06/19/20 14:00 06/20/20 09:31 Chloride IV 06/20/20 14:59 Infused Q6H GIOVANNI Infusion Home Medications Medication Instructions Recorded Confirmed Last Taken Type albuterol sulfate 2 puff INHALATION TID PRN 06/18/20 06/18/20 Unknown History coenzyme Q10 [Co Q-10] 300 mg PO DAILY 06/18/20 06/18/20 Unknown History metoprolol succinate 0.5 tab PO DAILY 06/18/20 06/18/20 Unknown History oxycodone 5 mg PO Q4-6H 06/18/20 06/18/20 Unknown History potassium chloride 1 tab PO DAILY 06/18/20 06/18/20 Unknown History Physical Exam Vital Signs: Vital Signs: Last Vital Signs Temp 97.8 F 06/20/20 11:24 Pulse 89 06/20/20 11:24 Resp 20 06/20/20 11:24 BP 130/80 06/20/20 11:24 Pulse Ox 95 06/20/20 11:24 Body Mass Index 25.2 Const: General: cooperative Orientation/consciousness: patient oriented x3 HENMT: Head: Yes normal to inspection Mouth: Normal oral and palatal mucosa present Eyes: General: appearance normal, both eyes and all related structures Resp: Effort & Inspection: normal respiratory effort Cardio: Rate: regular rate Rhythm: regular rhythm Heart sounds: no murmurs GI: Palpation (GI): Soft to palpation and nontender : General: Yes no CVA tenderness Back/Spine/Pelvis: Back: no CVA tenderness Cervical Spine: No cervical muscular tenderness Thoracic/Lumbar Spine: No thoracic spinal tenderness and No lumbar spinal tenderness Skin: General skin exam: no rashes or lesions noted Neuro: General: patient oriented x3 Results Labs CBC & Chem 7: 06/20/20 05:48 06/20/20 05:48 Labs: Short CBC 06/20/20 Range/Units 05:48 WBC 14.4 H (4.8-10.8) X10*3/uL Hgb 8.6 L (14.0-18.0) g/dl Hct 25.1 L (42-52) % Plt Count 76 L (160-400) X10*3/uL BMP 06/20/20 05:48 Sodium 138 Potassium 4.6 Chloride 107 Carbon Dioxide 20 L BUN 35 H Creatinine 0.95 Calcium 7.8 L D Microbiology Microbiology Results: Microbiology 06/18/20 14:38 Blood - Venous Blood Culture - Preliminary No growth after 24 hours. 06/18/20 14:14 Blood - Venous Blood Culture - Preliminary No growth after 24 hours. Assessment and Plan (1) Acute respiratory failure with hypoxemia: Problem details: He is no longer hypoxic He has had clinical evaluation for PE Pneumonia areas are likely bases Do not believe any active osteomyelitis as he has no back pain in thoracic area and ESR is normal Status: Acute Would agree with antibiotics cover lung (strep pneumonia,Hflu,atypicals) for now Levaquin 750 mg daily for 10 days should be sufficient Check Legionella (2) Septic shock: Status: Acute (3) Pneumonia: Qualifiers: Laterality: unspecified laterality Lung location: unspecified part of lung Pneumonia type: due to unspecified organism Qualified Code(s): J18.9 - Pneumonia, unspecified organism Status: Acute
[2020-06-20] MEDS: levoFLOXacin 750 MG TABLET PO (14:45)
[2020-06-20 15:36] VITALS: BP 104/77; PULSE 109; RESP 18; TEMP 36.6; O2SAT 97
--- NOTE | 2020-06-20 18:12 | PC.NURSE ---
PT APPEARS VERY ANXIOUS / UNHAPPY , PT REPOSITIONED EVERY HOUR FOR COMFORT , BILATERAL ARMS WRAPPED MULTIPLE TIMES TODAY DUE TO SATURATION OF SEROUS FLUID ON DRESSINGS, PT HAS VERY POOR APPETITE, THIS RN ENCOURAGING BETTER PO INTAKE.
[2020-06-20 19:11] VITALS: BP 167/73; PULSE 115; RESP 18; TEMP 36.8; O2SAT 94
[2020-06-20 23:47] VITALS: BP 129/72; PULSE 106; RESP 16; TEMP 36; O2SAT 96
[2020-06-21 03:29] VITALS: BP 134/59; PULSE 107; RESP 16; TEMP 36.2; O2SAT 95
[2020-06-21 06:00] VITALS: BMI 26.0
[2020-06-21 07:23] VITALS: BP 164/67; PULSE 91; RESP 18; TEMP 36.2; O2SAT 93
[2020-06-21 09:53] LABS: Alanine Aminotransferase 18 U/L (0-40); Albumin Level 2.4 g/dL (3.5-5.0); Alkaline Phosphatase 139 U/L (39-117); Anion Gap 12 (12-20); Aspartate Amino Transferase 43 U/L (5-37); B Type Natriuretic Peptide 380 pg/mL (<100); Bilirubin Direct 2.7 mg/dL (0.0-0.5); Blood Urea Nitrogen 38 mg/dL (9-16); Calcium 7.8 mg/dL (8.4-10.2); Carbon Dioxide 22 mmol/L (22-29); Chloride 108 mmol/L (96-108); Creatinine Clr Calc Pharmacy 50.5; Estimated Glomerular Filt Rate > 60; Glucose Random 118 mg/dL (60-115); Potassium 3.7 mmol/L (3.3-5.1); Sodium 138 mmol/L (135-145); Total Protein 5.3 g/dL (6.5-8.0)
--- NOTE | 2020-06-21 10:01 | MHC.SLORD ---
BABY FORMULA WORKER attempted to see pt for PO trials this morning. Pt refused despite encouragement, stating I am just not hungry . Pt did not eat any of his breakfast and continues to have poor PO intake, per RN. BABY FORMULA WORKER continues to recommend PUREED solids and THIN liquids with pills CRUSHED IN PUREE. Per RN, plan is for pt to be discharged back to [facility]. Continued speech therapy at next level of care is recommended. Name: Bhavik Delgado Date of : 1935 Age: 85 Date of Registration: 06/18/20 Speech Language Pathology Order Status:
[2020-06-21 10:46] VITALS: BP 164/67; PULSE 91; O2SAT 93
[2020-06-21 11:03] LABS: INTERNATIONAL NORM RATIO 2.1 (0.9-1.1); Prothrombin Time 25.5 SEC (10.8-13.0)
[2020-06-21 11:41] VITALS: BP 111/76; PULSE 90; RESP 16; TEMP 36.4; O2SAT 92
[2020-06-21] MEDS: levoFLOXacin 750 MG TABLET PO (13:22)
--- NOTE | 2020-06-21 13:45 | MHC.CLN ---
F/U PO INTAKE 25% DIET RX: CARDIAC GRD M/S-APPROPRIATE PT RECEIVING ENSURE TID, EMMA, AND PROSOURCE TO SUPPORT WOUND HEALING FOLLOWING
--- NOTE | 2020-06-21 15:07 | PM.DS ---
DS: Providers Provider Date of Service: 06/21/20 Date of admission: 06/18/20 22:14 Date of discharge: 06/21/20 Primary care physician: Unknown Physician Admitting clinician: Casper Gutierrez Attending physician on admission: Noé Donald Consults: 06/19/20 03:07 Consult to Wound Care Routine Consulting Provider: Christine Mayer Reason for consultation: right buttocks pressure ulcer - confirm staging. ? unstageable. Has provider been notified: Yes 06/20/20 10:07 Consult to Infectious Diseases Routine Consulting Provider: Kiara Vuong Reason for consultation: CT showing discitis vs osteomyelitis ? chronic Has provider been notified: No Attending physician on discharge: Keith Arzate Discharging clinician: Keith Arzate DS: Diagnosis Discharge Diagnosis (1) Acute respiratory failure with hypoxemia: Status: Acute (2) Septic shock: Status: Acute (3) Pneumonia: Status: Acute DS: Medications Discharge Medications Home Medications: Home Medications Medication Instructions Recorded Confirmed albuterol sulfate 2 puff INHALATION TID PRN 06/18/20 06/18/20 coenzyme Q10 [Co Q-10] 300 mg PO DAILY 06/18/20 06/18/20 metoprolol succinate 0.5 tab PO DAILY 06/18/20 06/18/20 oxycodone 5 mg PO Q4-6H 06/18/20 06/18/20 potassium chloride 1 tab PO DAILY 06/18/20 06/18/20 DS: Summary Hospital Course Hospital Course: HP as per admitting provider This is a 85-year-old male with an extensive past medical history including diastolic heart failure ( last echo,04/14/2020 at [facility], EF 60-65%), atrial fibrillation (not on anticoagulation) sick sinus syndrome status post pacemaker ( since the 2012), hypertension, hyperlipidemia, dysphagia, liver cirrhosis, chronic thrombocytopenia, anemia, unstageable coccyx wound, who also has had multiple admissions to hospital since March including UTI septic shock, as well as right femur neck fracture with surgical repair on 06/04/2020 [facility]. He presented today to the emergency room from [facility] after all O2 saturation in the 70s on room air. On arrival to the emergency room the patient was alert and oriented x3 and vital signs were stable, but later he developed a fever to 101, and became hypotensive to the SBP to 70s. Laboratory data significant for WBC 15.9, platelets 87, sodium 134, bicarb 21, lactic acid 4, calcium 7.2, total billirubin 4.3, AST 47, Alk phos 195, total protein albumin 1.9, BNP 485. Urine: negative for UTI Imaging: Chest CT: appears to have bilateral pneumonia Pelvis CT: Cirrhosis and ascites. Anasarca. Possible cellulitis superficial to the sacrum without evidence of underlying osteomyelitis.Postsurgical changes of the right hip with fluid collection deep to the iliotibial band. 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 ER course: he received 3 L of non normal saline, vancomycin 1 g, levofloxacin 500, Albumin 200ml, and ultimately require Levophed for severe hypotension. In the ED, code status was addressed with patient as well as . In the in the beginning patient wanted to be made [employer], but an agreement between patient and , patient is now a DNR/DNI. MOLST form was completed by ED physician. DNR/DNI order in chart Patient admitted to the ICU with acute hypoxic respiratory failure seondary to aspiration pneumonia with oxygen saturation of 70%. He was in septic shock with fever secondary to presumed aspiration pneumonia. He developed hypotension and required Levophed. He was initially started on Augmentin. He no longer required Levophed or oxygen supplementation therefore he was transferred to medical floor. He was recently at [facility] after a hip fracture and repair. He was transferred here from [facility] and will return to complete rehabilitation. He will be on Levaquin total 10 days course. Coccyx pressure ulcer. Present on admission. Continue daily wound care with zinc oxide. Atrial fibrillation. Remained stable during hospitalization. Chronic liver cirrhosis with coagulopathy/thrombocytopenia . He received 5 doses of vitamin K. Close baseline. He has multiple other chronic medical problems and will continue on his medications he was on previously. Recommend goals of care with the patients regarding possible hospice transition. Attending: Dr. Arzate Time Spent with Patient Time attestation: Total time spent providing and/or coordinating discharge services: Discharge coordination time: Greater than 30 minutes Physical Exam Vital Signs: Vital Signs: Last Vital Signs Temp 97.5 F 06/21/20 11:41 Pulse 90 06/21/20 11:41 Resp 16 06/21/20 11:41 BP 111/76 06/21/20 11:41 Pulse Ox 92 06/21/20 11:41 Body Mass Index 26.0 Appearing in no acute distress lung sounds normal expansion heart regular rate rhythm, clear S1, S2 positive bowel sounds, abdomen is soft, nontender neuro patient is alert x3, no focal deficits DS: Data Data Completed and Pending Labs on day of discharge: Laboratory Results - last 24 hr 06/21/20 06/21/20 06/21/20 09:16 09:16 10:24 PT 25.5 H INR 2.1 H Sodium 138 Potassium 3.7 Chloride 108 Carbon Dioxide 22 Anion Gap 12 BUN 38 H Creatinine 1.00 Estim Creat Clear Calc 50.5 Estimated GFR > 60 Random Glucose 118 H D Calcium 7.8 L Total Bilirubin 5.0 H Direct Bilirubin 2.7 H AST 43 H ALT 18 Alkaline Phosphatase 139 H B-Natriuretic Peptide 380 H Total Protein 5.3 L Albumin 2.4 L Preliminary micro results at discharge 06/18/20 14:38 Blood Culture - Preliminary Blood - Venous No growth after 48 hours. 06/18/20 14:14 Blood Culture - Preliminary Blood - Venous No growth after 48 hours. Discharge Plan Discharge Anticipated Discharge Date/Time: 06/21/20 15:32 Patient Disposition: Xfer SNF Referrals: [facility] Hernandez [Outside] Jim Rowe MD [Physician] - Physician,Unknown [Primary Care Provider] - Discharge Medications: New levofloxacin 750 mg Tablet 750 mg PO Q24H Qty: 8 RF: 0 Continued oxycodone 5 mg Capsule 5 mg PO Q4-6H RF: 0 metoprolol succinate 25 mg tablet extended release 24 hr 0.5 tab PO DAILY RF: 0 albuterol sulfate 90 mcg/actuation HFA aerosol inhaler 2 puff inhalation TID PRN (Reason: dyspnea) RF: 0 Co Q-10 300 mg capsule 300 mg PO DAILY RF: 0 potassium chloride 20 mEq tablet extended release 1 tab PO DAILY RF: 0 Discharge Orders: Discharge Order (Routine); Ordered 06/21/20 Ordered By: Debo Woodson Diet: advance to usual diet Activity on Discharge: As tolerated Stand Alone Forms: Patient Portal Discharge page Care Plan Goals: Recovery from current illness Health Concerns: Septic shock, aspiration pneumonia, chronic liver cirrhosis Plan of Treatment: Short term rehabilitation. Follow up with primary care provider after rehabilitation.
[2020-06-21 15:31] VITALS: BP 121/85; PULSE 100; RESP 16; TEMP 36; O2SAT 93
[2020-06-24 07:26] LABS: Legionella Ag Urine Not Detected (Not Detected)
== END 2020-06-21 17:46 | disposition skilled nursing facility (03) | DRG 871 ==
LOC: HO.ED 18:32 → HO.ICU 22:49 → HO.S3 06-19 14:51
PROVIDERS: Anesthesiology; Emergency Medicine; Internal Medicine; Nurse Practitioner Acute Care; Registered Nurse Community Health; Admitting Provider Internal Medicine Pulmonary Disease; Emergency Provider Internal Medicine; PCP Family Medicine; Visit Provider Family Medicine
DX: A41.9 Sepsis, unspecified organism (principal); J18.9 Pneumonia, unspecified organism; R65.21 Severe sepsis with septic shock; J96.01 Acute respiratory failure with hypoxia; R18.8 Other ascites; D61.818 Other pancytopenia; M46.24 Osteomyelitis of vertebra, thoracic region; L89.312 Pressure ulcer of right buttock, stage 2; I49.5 Sick sinus syndrome; K72.10 Chronic hepatic failure without coma; K74.60 Unspecified cirrhosis of liver; E78.5 Hyperlipidemia, unspecified; Z95.0 Presence of cardiac pacemaker; Z20.822 Contact with and (suspected) exposure to COVID-19; Z79.891 Long term (current) use of opiate analgesic; Z79.899 Other long term (current) drug therapy; Z66 Do not resuscitate
CPT/HCPCS: 0241U; 36415; 70450; 71045; 71250; 74176; 80048; 80053; 80076; 80307; 81003; 82140; 82550; 82947; 83605; 83735; 83880; 84100; 84484; 85025; 85060; 85610; 85652; 85730; 86140; 86850; 86900; 87040; 87449; 87633; 92610; 93005; 96365; 96366; 96368; 97162; 99284; 99285; 99291; C1758; J1956; J3370; J3430; P9047

== ENCOUNTER 2020-06-19 00:43 | Outpatient (REF) | payer MEDICARE, SELFPAY | END 2020-06-19 00:44 | disposition home or self-care (01) | LOC: HO.MMNH1L 00:43 | PROVIDERS: Visit Provider Family Medicine | DX: Z13.89 Encounter for screening for other disorder (principal) ==

== ENCOUNTER 2020-06-22 06:29 | Outpatient (REF) | payer MEDICARE, SELFPAY ==
[2020-06-22 06:52] LABS: Hematocrit 24.4 % (42-52); Hemoglobin 8.4 g/dl (14.0-18.0); Mean Corpuscular HGB Conc 34.4 g/dl (31.0-36.0); Mean Corpuscular Hemoglobin 37.5 pg (27.0-33.0); Mean Corpuscular Volume 108.9 fL (80-98); Mean Platelet Volume 11.6 fL (9.4-12.4); Red Blood Count 2.24 X10*6/uL (4.60-5.80); Red Cell Distribution Width 21.4 % (11.0-16.0); White Blood Count 7.9 X10*3/uL (4.8-10.8)
[2020-06-22 06:56] LABS: Platelet Count 55 X10*3/uL (160-400)
[2020-06-22 07:26] LABS: Alanine Aminotransferase 17 U/L (0-40); Albumin Level 2.2 g/dL (3.5-5.0); Alkaline Phosphatase 134 U/L (39-117); Anion Gap 11 (12-20); Aspartate Amino Transferase 39 U/L (5-37); Bilirubin Total 4.4 mg/dL (0.0-1.0); Blood Urea Nitrogen 38 mg/dL (9-16); Calcium 7.6 mg/dL (8.4-10.2); Carbon Dioxide 22 mmol/L (22-29); Chloride 112 mmol/L (96-108); Estimated Glomerular Filt Rate > 60; Glucose Random 98 mg/dL (60-115); Potassium 3.9 mmol/L (3.3-5.1); Sodium 141 mmol/L (135-145); Total Protein 5.1 g/dL (6.5-8.0)
== END 2020-06-22 06:30 | disposition home or self-care (01) ==
LOC: HO.MMNH1L 06:29
PROVIDERS: Visit Provider Family Medicine
DX: A41.9 Sepsis, unspecified organism (principal)
CPT/HCPCS: 36415; 80053; 85027

== ENCOUNTER 2020-06-26 00:15 | Outpatient (REF) | payer MEDICARE, SELFPAY | END 2020-06-26 00:16 | disposition home or self-care (01) | LOC: HO.MMNH1L 00:15 | PROVIDERS: Visit Provider Family Medicine | DX: Z13.89 Encounter for screening for other disorder (principal) ==